=== PATIENT | female | born 1980 | race Native Hawaiian/Other Pacific Islander ===

== ENCOUNTER → 2016-12-11 | Outpatient (CLI) | payer OTHER ==
[~2016-12-11] MED LIST: CEPH500T PO
--- NOTE | 2016-12-12 08:14 | ECHOCARDIOGRAPHY REPORT ---
PROCEDURE PHYSICIAN: VIRGIL BARNES DATE OF PROCEDURE: 12/11/2016 TWO DIMENSIONAL ECHOCARDIOGRAM REPORT PRIMARY PHYSICIAN: OTHER PHYSICIAN: REFERRING PHYSICIAN: Dr. Aparicio ORDERING PHYSICIAN: Dr. Rochelle Barnes ATTENDING PHYSICIAN: FAMILY PHYSICIAN: READING PHYSICIAN: INDICATION FOR THE PROCEDURE: Chest pain. MEASUREMENTS DERIVED VALUES LV DIAMETER (LAX) NORMALS NORMALS Diastolic (3.6-5.2) Eject. Fract. (60%+/-6%) Systolic (2.3-3.9) Diastolic Vol. % Shortening (0.22-0.42) Systolic Vol. Aortic Root IVS THICKNESS Diastolic (0.6-1.1) LVPW THICKNESS Diastolic (0.6-1.1) LA DIAMETER Systolic (2.1-3.7) FINDINGS: 1. Sinus rhythm. 2. Left atrial dimensions are mildly enlarged. Left atrial diameter is 4.4 cm. 3. Aortic root dimensions are normal. 4. Left ventricular systolic function is preserved. Left ventricular ejection fraction is 60%. Mild concentric LVH is present. Diastolic intraventricular septal diameter is 1.3 cm. 5. There is no wall motion abnormality. 6. Right heart dimensions and function are normal. 7. There is no evidence of pericardial effusion. 8. Diastolic function is normal. 9. IVC diameter is 1.7 cm with no significant respiratory variation. VALVULAR STRUCTURE OF THE HEART: 1. Mitral valve: There is mild mitral regurgitation. 2. There is mild tricuspid regurgitation with RVSP of 40 mmHg. 3. There is no significant pulmonic valve pathology and aortic valve pathology. CONCLUSION: 1. LV and RV size and function is normal. 2. LV EF is 60%. 3. There is no significant valvular heart disease. 4. Mild pulmonary hypertension is noted. Job ID: [id number] Dictated Date: 12/11/2016 15:10:26 Advertising Operations Coordinator Date: 12/12/2016 08:09:49 / [email or web address]
== END ==
LOC: CARD 11:49
PROVIDERS: ATTEND Internal Medicine Interventional Cardiology
DX: R07.9 Chest pain, unspecified (principal); I10 Essential (primary) hypertension; R00.2 Palpitations; M32.9 Systemic lupus erythematosus, unspecified; Z72.0 Tobacco use
CPT/HCPCS: 93306

== ENCOUNTER → 2016-12-13 | Outpatient (CLI) | payer OTHER ==
[~2016-12-13] VITALS: Ht 162.6 cm; Wt 108.0 kg
[~2016-12-13] MED LIST changes: +REGADENOSON 0.4 MG/5 ML SYR (LEXISCAN) IV ONE
[2016-12-13] MEDS: CATHETER FLUSH 10 ML SYR IV PRN ×2 (11:52→13:36)
[2016-12-13 13:06] VITALS: BP 151/79
--- NOTE | 2016-12-14 10:41 | STRESS TEST ---
PROCEDURE PHYSICIAN: VIRGIL BARNES PHARMACOLOGICAL NUCLEAR STRESS TEST REPORT DATE OF PROCEDURE: 11/12/2016 REFERRING PHYSICIAN: Dr. Jania Aparicio PERFORMING PHYSICIAN: Dr. Kyle Barnes. INDICATION: Chest pain. PROCEDURE DETAILS: The patient was brought to the stress lab after informed consent was taken. Stress test was performed according to standard protocol. Lexiscan 0.4 mg was given. Low grade exercise was performed. Baseline EKG showed sinus rhythm with heart rate of 60 bpm and blood pressure 151/79 mmHg. Maximum heart rate was 102 bpm and blood pressure was 164/85 mmHg. We did not note any chest pain, ST-T wave abnormalities or arrhythmias. Stress test was stopped secondary to completion of protocol. Radionuclear isotope was given at peak vasodilatation. The patient was given 10.16 mCi of Myoview for rest images and 29.9 mCi of Myoview for stress images. Review of the perfusion imaging shows TID of 0.99. Ejection fraction is 71%. End-diastolic volume of 81 mL and end-systolic volume of 24. There is a moderate size, intermediate intensity apical reversible defect. Gated images show normal wall motion. CONCLUSION: 1. Pharmacological stress test is negative for ischemia. 2. There is a moderate sized apical reversible defect noted. Gated images showed normal wall motion. This could be an artifact; however, clinical correlation is recommended. Job ID: [id number] Dictated Date: 12/13/2016 15:29:34 Business Analysis Analyst Date: 12/14/2016 10:36:14 / [email or web address]
== END ==
LOC: CARD 09:28
PROVIDERS: ATTEND Internal Medicine Interventional Cardiology
DX: R07.9 Chest pain, unspecified (principal); I10 Essential (primary) hypertension; R00.2 Palpitations; M32.9 Systemic lupus erythematosus, unspecified; Z72.0 Tobacco use
CPT/HCPCS: 78452; 93017; 93270

== ENCOUNTER → 2017-01-18 | Outpatient (CLI) | payer OTHER ==
[~2017-01-18] MED LIST changes: -REGADENOSON 0.4 MG/5 ML SYR (LEXISCAN) IV ONE
--- OUTSIDE RECORDS SUMMARY | 2017-01-18 12:51 | XMS REPORT | Continuity of Care Document ---
Author Author [facility] Address Unknown Phone Unavailable Allergies Active Description Code Type Severity Reaction Onset Reported/Identified Relationship to Patient Clinical Status Yes No Known Drug Allergies [id number] Drug Allergy Unknown N/ A 11/15/2008 Medications Problems Date Dx Coded Attending Type Code Diagnosis Diagnosed By 01/02/2012 SIENA VEGRARA DO 278.01 OBESITY MORBID 01/02/2012 SIENA VERGARA DO 401.9 ESSENTIAL HYPERTENSION 01/02/2012 278.01 OBESITY MORBID 01/02/2012 401.9 ESSENTIAL HYPERTENSION 01/02/2012 SIENA VERGARA DO 278.01 OBESITY MORBID 01/02/2012 SIENA VERGARA DO 401.9 ESSENTIAL HYPERTENSION 03/11/2012 SIENA VERGARA DO V25.09 CONTRACEPTIVE COUNSELING - GENERAL 03/11/2012 V25.09 CONTRACEPTIVE COUNSELING - GENERAL 03/11/2012 SIENA VERGARA DO V25.09 CONTRACEPTIVE COUNSELING - GENERAL 05/01/2012 SIENA VERGARA DO 278.00 OBESITY 05/01/2012 SIENA VERGARA DO 379.91 eye pain 05/01/2012 SIENA VERGARA DO V77.1 visit for: screening exam diabetes mellitus 05/01/2012 SIENA VERGARA DO V77.91 visit for: screening exam lipoid disorders 05/01/2012 278.00 OBESITY 05/01/2012 379.91 eye pain 05/01/2012 V77.1 visit for: screening exam diabetes mellitus 05/01/2012 V77.91 visit for: screening exam lipoid disorders 05/01/2012 SIENA VERGARA DO 278.00 OBESITY 05/01/2012 SIENA VERGARA DO 379.91 eye pain 05/01/2012 SIENA VERGARA DO V77.1 visit for: screening exam diabetes mellitus 05/01/2012 SIENA VERGARA DO V77.91 visit for: screening exam lipoid disorders 05/27/2012 SIENA VERGARA DO V25.9 CONTRACEPTION MANAGEMENT 05/27/2012 V25.9 CONTRACEPTION MANAGEMENT 05/27/2012 SIENA VERGARA DO V25.9 CONTRACEPTION MANAGEMENT 08/18/2012 SIENA VERGARA DO V25.49 CONTRACEPTION SURVEILLANCE (REPEAT RX) 08/18/2012 V25.49 CONTRACEPTION SURVEILLANCE (REPEAT RX) 08/18/2012 SIENA VERGARA DO V25.49 CONTRACEPTION SURVEILLANCE (REPEAT RX) 08/23/2015 Ot 278.00 08/23/2015 Ot 379.91 08/23/2015 Ot 401.9 08/23/2015 Ot V77.1 08/23/2015 Ot V77.91 08/23/2015 Ot 278.00 08/23/2015 Ot 401.9 08/23/2015 MELINDA TESFAYE, GAYLE Moura Ot 278.00 08/23/2015 MELINDA TESFAYE, GAYLE Moura Ot 401.9 08/23/2015 GAYLE LAWRENCE MD Ot 719.40 08/23/2015 GAYLE LAWRENCE MD Ot 726.90 08/23/2015 MERLE LOCKWOOD MORTGAGE COLLECTOR Ot 719.40 08/23/2015 MERLE LOCKWOOD MORTGAGE COLLECTOR Ot 729.1 08/23/2015 SIDNEY HOPPER Ot F17.210 NICOTINE DEPENDENCE, CIGARETTES, UNCOMPL 08/23/2015 SIDNEY HOPPER Ot O10.019 PRE-EXISTING ESSENTIAL HTN COMP PREGNANC 08/23/2015 SIDNEY HOPPER Ot O20.0 THREATENED 08/23/2015 SIDNEY HOPPER Ot O99.330 SMOKING (TOBACCO) COMPLICATING 08/23/2015 SIDNEY HOPPER Ot Z3A.00 WEEKS OF GESTATION OF NOT SPEC 11/30/2015 SRIKANTH TESFAYE, CHEL Wood Ot M06.9 01/17/2016 Ot 278.00 01/17/2016 Ot 379.91 01/17/2016 Ot 401.9 01/17/2016 Ot V77.1 01/17/2016 Ot V77.91 01/17/2016 Ot 278.00 01/17/2016 Ot 401.9 01/17/2016 MELINDA TESFAYE, GAYLE Moura Ot 278.00 01/17/2016 MELINDA TESFAYE, GAYLE Moura Ot 401.9 01/17/2016 GAYLE LAWRENCE MD Ot 719.40 01/17/2016 GAYLE LAWRENCE MD Ot 726.90 01/17/2016 MERLE LOCKWOOD MORTGAGE COLLECTOR Ot 719.40 01/17/2016 MERLE LOCKWOOD MORTGAGE COLLECTOR Ot 729.1 01/17/2016 SRIKANTH TESFAYE, CHEL Wood Ot M06.9 01/17/2016 SRIKANTH TESFAYE, CHEL Wood Ot Z51.81 01/17/2016 SRIKANTH TESFAYE, CHEL Wood Ot Z79.899 01/17/2016 SRIKANTH TESFAYE, CHEL Wood Ot M05.79 01/17/2016 Ot 278.00 01/17/2016 Ot 379.91 01/17/2016 Ot 401.9 01/17/2016 Ot V77.1 01/17/2016 Ot V77.91 01/17/2016 Ot 278.00 01/17/2016 Ot 401.9 01/17/2016 MELINDA TESFAYE, GAYLE A Ot 278.00 01/17/2016 MELINDA TESFAYE, GAYLE A Ot 401.9 01/17/2016 MELINDA TESFAYE, GAYLE A Ot 719.40 01/17/2016 MELINDA TESFAYE, GAYLE A Ot 726.90 01/17/2016 MERLE LOCKWOOD MORTGAGE COLLECTOR Ot 719.40 01/17/2016 MERLE LOCKWOOD MORTGAGE COLLECTOR Ot 729.1 01/17/2016 SRIKANTH TESFAYE, CHEL Wood Ot M06.9 01/17/2016 SRIKANTH TESFAYE, CHEL Wood Ot Z51.81 01/17/2016 SRIKANTH TESFAYE, CHEL Wood Ot Z79.899 01/17/2016 SRIKANTH TESFAYE, CHEL Wood Ot M05.79 11/07/2016 Ot 278.00 OBESITY, NOS 11/07/2016 Ot 379.91 PAIN IN OR AROUND EYE 11/07/2016 Ot 401.9 HYPERTENSION NOS 11/07/2016 Ot V77.1 SCREEN-DIABETES MELLITUS 11/07/2016 Ot V77.91 SCREEN LIPOID DISORDERS 11/07/2016 Ot 278.00 OBESITY, NOS 11/07/2016 Ot 401.9 HYPERTENSION NOS 11/07/2016 MELINDA TESFAYE, GAYLE A Ot 278.00 OBESITY, NOS 11/07/2016 MELINDA TESFAYE, GAYLE A Ot 401.9 HYPERTENSION NOS 11/07/2016 MELINDA TESFAYE, GAYLE Moura Ot 719.40 JOINT PAIN-UNSPEC 11/07/2016 MELINDA TESFAYE, GAYLE Moura Ot 726.90 ENTHESOPATHY, SITE NOS 11/07/2016 MERLE LOCKWOOD MORTGAGE COLLECTOR Ot 719.40 JOINT PAIN-UNSPEC 11/07/2016 MERLE LOCKWOOD MORTGAGE COLLECTOR Ot 729.1 MYALGIA AND MYOSITIS NOS 11/07/2016 CHEL DUKE MD Ot M06.9 RHEUMATOID ARTHRITIS, UNSPECIFIED 11/07/2016 CHEL DUKE MD Ot Z51.81 ENCOUNTER FOR THERAPEUTIC DRUG LEVEL MON 11/07/2016 CHEL DUKE MD Ot Z79.899 OTHER MILL HAND (CURRENT) DRUG THERAPY 11/07/2016 CHEL DUKE MD Ot M05.79 RHEU ARTHRITIS W RHEU FACTOR MULT SITE W 12/11/2016 Ot 278.00 OBESITY, NOS 12/11/2016 Ot 379.91 PAIN IN OR AROUND EYE 12/11/2016 Ot 401.9 HYPERTENSION NOS 12/11/2016 Ot V77.1 SCREEN-DIABETES MELLITUS 12/11/2016 Ot V77.91 SCREEN LIPOID DISORDERS 12/11/2016 Ot 278.00 OBESITY, NOS 12/11/2016 Ot 401.9 HYPERTENSION NOS 12/11/2016 GAYLE LAWRENCE MD Ot 278.00 OBESITY, NOS 12/11/2016 GAYLE LAWRENCE MD Ot 401.9 HYPERTENSION NOS 12/11/2016 GAYLE LAWRENCE MD Ot 719.40 JOINT PAIN-UNSPEC 12/11/2016 GAYLE LAWRENCE MD Ot 726.90 ENTHESOPATHY, SITE NOS 12/11/2016 MERLE LOCKWOOD MORTGAGE COLLECTOR Ot 719.40 JOINT PAIN-UNSPEC 12/11/2016 MERLE LOCKWOOD MORTGAGE COLLECTOR Ot 729.1 MYALGIA AND MYOSITIS NOS 12/11/2016 CHEL DUKE MD Ot M06.9 RHEUMATOID ARTHRITIS, UNSPECIFIED 12/11/2016 CHEL DUKE MD Ot Z51.81 ENCOUNTER FOR THERAPEUTIC DRUG LEVEL MON 12/11/2016 CHEL DUKE MD Ot Z79.899 OTHER [facility] (CURRENT) DRUG THERAPY 12/11/2016 CHEL DUKE MD Ot M05.79 RHEU ARTHRITIS W RHEU FACTOR MULT SITE W 12/11/2016 JASWANT MCLEAN ADMINISTRATIVE TECH Ot R06.02 SHORTNESS OF BREATH 12/11/2016 JASWANT MCLEAN ADMINISTRATIVE TECH Ot R07.9 CHEST PAIN, UNSPECIFIED 12/12/2016 To BURKS MD Ot I10 ESSENTIAL (PRIMARY) HYPERTENSION 12/12/2016 VITALIY TESFAYE, To CHILDS Ot M32.9 SYSTEMIC LUPUS ERYTHEMATOSUS, UNSPECIFIE 12/12/2016 To BURKS MD Ot R00.2 PALPITATIONS 12/12/2016 To BURKS MD Ot R07.9 CHEST PAIN, UNSPECIFIED 12/12/2016 To BURKS MD Ot Z72.0 TOBACCO USE 12/13/2016 To BURKS MD Ot I10 ESSENTIAL (PRIMARY) HYPERTENSION 12/13/2016 VITALIY TESFAYE, To CHILDS Ot M32.9 SYSTEMIC LUPUS ERYTHEMATOSUS, UNSPECIFIE 12/13/2016 VITALIY TESFAYE, To CHILDS Ot R00.2 PALPITATIONS 12/13/2016 To BURKS MD Ot R07.9 CHEST PAIN, UNSPECIFIED 12/13/2016 To BURKS MD Ot Z72.0 TOBACCO USE 12/14/2016 To BURKS MD Ot I10 ESSENTIAL (PRIMARY) HYPERTENSION 12/14/2016 To BURKS MD Ot M32.9 SYSTEMIC LUPUS ERYTHEMATOSUS, UNSPECIFIE 12/14/2016 To BURKS MD Ot R00.2 PALPITATIONS 12/14/2016 To BURKS MD Ot R07.9 CHEST PAIN, UNSPECIFIED 12/14/2016 To BURKS MD Ot Z72.0 TOBACCO USE 12/14/2016 To BURKS MD Ot I10 ESSENTIAL (PRIMARY) HYPERTENSION 12/14/2016 To BURKS MD Ot M32.9 SYSTEMIC LUPUS ERYTHEMATOSUS, UNSPECIFIE 12/14/2016 To BURKS MD Ot R00.2 PALPITATIONS 12/14/2016 To BURKS MD Ot R07.9 CHEST PAIN, UNSPECIFIED 12/14/2016 To BURKS MD Ot Z72.0 TOBACCO USE 12/17/2016 To BURKS MD Ot I10 ESSENTIAL (PRIMARY) HYPERTENSION 12/17/2016 VITALIY TESFAYE, To CHILDS Ot M32.9 SYSTEMIC LUPUS ERYTHEMATOSUS, UNSPECIFIE 12/17/2016 VITALIY TESFAYE, To CHILDS Ot R00.2 PALPITATIONS 12/17/2016 VITALIY TESFAYE, To CHILDS Ot R07.9 CHEST PAIN, UNSPECIFIED 12/17/2016 VITALIY TESFAYE, To CHILDS Ot Z72.0 TOBACCO USE 01/18/2017 Ot 278.00 OBESITY, NOS 01/18/2017 Ot 379.91 PAIN IN OR AROUND EYE 01/18/2017 Ot 401.9 HYPERTENSION NOS 01/18/2017 Ot V77.1 SCREEN-DIABETES MELLITUS 01/18/2017 Ot V77.91 SCREEN LIPOID DISORDERS 01/18/2017 Ot 278.00 OBESITY, NOS 01/18/2017 Ot 401.9 HYPERTENSION NOS 01/18/2017 MELINDA TESFAYE, GAYLE Moura Ot 278.00 OBESITY, NOS 01/18/2017 MELINDA TESFAYE, GAYLE Moura Ot 401.9 HYPERTENSION NOS 01/18/2017 MELINDA TESFAYE, GAYLE Moura Ot 719.40 JOINT PAIN-UNSPEC 01/18/2017 MELINDA TESFAYE, GAYLE Moura Ot 726.90 ENTHESOPATHY, SITE NOS 01/18/2017 MERLE LOCKWOOD MORTGAGE COLLECTOR Ot 719.40 JOINT PAIN-UNSPEC 01/18/2017 MERLE LOCKWOOD MORTGAGE COLLECTOR Ot 729.1 MYALGIA AND MYOSITIS NOS 01/18/2017 CHEL DUKE MD Ot M06.9 RHEUMATOID ARTHRITIS, UNSPECIFIED 01/18/2017 CHEL DUKE MD Ot Z51.81 ENCOUNTER FOR THERAPEUTIC DRUG LEVEL MON 01/18/2017 CHEL DUKE MD Ot Z79.899 OTHER [facility] (CURRENT) DRUG THERAPY 01/18/2017 CHEL DUKE MD Ot M05.79 RHEU ARTHRITIS W RHEU FACTOR MULT SITE W 01/18/2017 JASWANT MCLEAN APRN Ot R06.02 SHORTNESS OF BREATH 01/18/2017 JASWANT MCLEAN APRN Ot R07.9 CHEST PAIN, UNSPECIFIED 01/18/2017 VITALIY TESFAYE, To CHILDS Ot I10 ESSENTIAL (PRIMARY) HYPERTENSION 01/18/2017 VITALIY TESFAYE, To CHILDS Ot M32.9 SYSTEMIC LUPUS ERYTHEMATOSUS, UNSPECIFIE 01/18/2017 VITALIY TESFAYE, To CHILDS Ot R00.2 PALPITATIONS 01/18/2017 VITALIY TESFAYE, To CHILDS Ot R07.9 CHEST PAIN, UNSPECIFIED 01/18/2017 VITALIY TESFAYE, To CHILDS Ot Z72.0 TOBACCO USE 01/18/2017 VITALIY TESFAYE, To CHILDS Ot I10 ESSENTIAL (PRIMARY) HYPERTENSION 01/18/2017 VITALIY TESFAYE, To CHILDS Ot M32.9 SYSTEMIC LUPUS ERYTHEMATOSUS, UNSPECIFIE 01/18/2017 VITALIY TESFAYE, To CHILDS Ot R00.2 PALPITATIONS 01/18/2017 VITALIY TESFAYE, To CHILDS Ot R07.9 CHEST PAIN, UNSPECIFIED 01/18/2017 To BURKS MD Ot Z72.0 TOBACCO USE Procedures Code Description [place] [address] THERAPUTIC INJ SQ/IM 11/17/2012 J1055 DEPO-PROVERA INJ 150 MG 11/17/2012 [id number] URINE TEST (IN-HOUSE) 11/17/2012 40328 URINE TEST (IN-HOUSE) 02/21/2013 J1050 DEPO PROVERA 42981 THERAPUTIC INJ SQ/IM 02/21/2013 44332 THERAPUTIC INJ SQ/IM 07/04/2013 J1050 DEPO PROVERA 82746 URINE TEST (IN-HOUSE) 07/04/2013 Results Encounters ACCT No. Visit Date/Time Discharge Status Pt. Type Provider Facility Loc./Unit Complaint [id number] 07/04/2013 11:49:00 07/04/2013 23: 59:59 CLS Outpatient SIENA VERGARA DO [id number] 11/17/2012 16:25:00 11/17/2012 23: 59:59 CLS Outpatient SIENA VERGARA DO [id number] 02/21/2013 10:36:00 Document Registration
[2017-01-18 13:21] LABS: ALANINE AMINOTRANSFERASE 31 U/L (0-55); ASPARTATE AMINO TRANSFERASE 32 U/L (5-34)
== END ==
LOC: LAB 12:47
PROVIDERS: ATTEND Internal Medicine Rheumatology
DX: M35.00 Sjogren syndrome, unspecified (principal); M79.7 Fibromyalgia; M05.79 Rheumatoid arthritis with rheumatoid factor of multiple sites without organ or systems involvement; D89.89 Other specified disorders involving the immune mechanism, not elsewhere classified; Z79.899 Other long term (current) drug therapy
CPT/HCPCS: 36415; 84450; 84460

== ENCOUNTER → 2017-03-22 | Outpatient (CLI) | payer OTHER ==
[2017-03-22 14:31] LABS: BASOPHILS # (AUTO) 0.1 10^3/uL (0.0-0.1); BASOPHILS % (AUTO) 1 % (0-10); EOSINOPHILS # (AUTO) 0.1 10^3/uL (0.0-0.3); EOSINOPHILS % (AUTO) 2 % (0-10); LYMPHOCYTES # (AUTO) 2.1 X 10^3 (1.0-4.0); LYMPHOCYTES % (AUTO) 37 % (12-44); MEAN CORPUSCULAR HEMOGLOBIN 31 PG (25-34); MEAN CORPUSCULAR HGB CONC 34 G/DL (32-36); MEAN CORPUSCULAR VOLUME 91 FL (80-99); MEAN PLATELET VOLUME 9.1 FL (7.4-10.4); MONOCYTES # (AUTO) 0.5 X 10^3 (0.0-1.0); MONOCYTES % (AUTO) 8 % (0-12); NEUTROPHILS # (AUTO) 2.9 X 10^3 (1.8-7.8); NEUTROPHILS % (AUTO) 52 % (42-75); PLATELET COUNT 255 10^3/uL (130-400); RED BLOOD COUNT 3.91 10^6/uL (4.35-5.85); RED CELL DISTRIBUTION WIDTH 15.3 % (10.0-14.5); WHITE BLOOD COUNT 5.7 10^3/uL (4.3-11.0)
[2017-03-22 14:40] LABS: CREATININE SERUM 0.78 MG/DL (0.60-1.30); hs C REACTIVE PROTEIN 0.13 MG/DL (0.00-0.50)
[2017-03-22 14:57] LABS: ERYTHROCYTE SEDIMENTATION RATE 21 MM/HR (0-20)
== END ==
LOC: LAB 14:08
PROVIDERS: ATTEND Internal Medicine Rheumatology
DX: M05.79 Rheumatoid arthritis with rheumatoid factor of multiple sites without organ or systems involvement (principal)
CPT/HCPCS: 36415; 82565; 84460; 85025; 85652; 86141

== ENCOUNTER → 2017-06-13 | Outpatient (CLI) | payer OTHER ==
[2017-06-13 16:12] LABS: BASOPHILS % (AUTO) 1 % (0-10); EOSINOPHILS # (AUTO) 0.2 10^3/uL (0.0-0.3); EOSINOPHILS % (AUTO) 2 % (0-10); LYMPHOCYTES # (AUTO) 1.5 X 10^3 (1.0-4.0); LYMPHOCYTES % (AUTO) 24 % (12-44); MEAN CORPUSCULAR HEMOGLOBIN 30 PG (25-34); MEAN CORPUSCULAR HGB CONC 33 G/DL (32-36); MEAN CORPUSCULAR VOLUME 90 FL (80-99); MEAN PLATELET VOLUME 9.4 FL (7.4-10.4); MONOCYTES # (AUTO) 0.5 X 10^3 (0.0-1.0); MONOCYTES % (AUTO) 7 % (0-12); NEUTROPHILS % (AUTO) 65 % (42-75); PLATELET COUNT 287 10^3/uL (130-400); RED BLOOD COUNT 4.19 10^6/uL (4.35-5.85); RED CELL DISTRIBUTION WIDTH 16.1 % (10.0-14.5); WHITE BLOOD COUNT 6.2 10^3/uL (4.3-11.0)
[2017-06-13 16:28] LABS: CREATININE SERUM 0.79 MG/DL (0.60-1.30); hs C REACTIVE PROTEIN 0.5 MG/DL (0.00-0.50)
[2017-06-13 16:29] LABS: ERYTHROCYTE SEDIMENTATION RATE 32 MM/HR (0-20)
[2017-06-14 06:37] LABS: C3 COMPLEMENT SERUM 103 mg/dL (73-183)
[2017-06-14 06:38] LABS: C4 COMPLEMENT SERUM 15 mg/dL (15-59)
[2017-06-19 07:52] LABS: ANTI DNA DOUBLE STRANDED ABY 217 IU/ML (0-300); DNA CONFIRM Positive
[2017-06-19 07:53] LABS: SJOGRENS SSA ANTIBODIES 50 H UNITS (0-19)
[2017-06-19 07:54] LABS: SCLERODERMA ANTIBODY <20 UNITS (0-19); SJOGRENS SSB ANTIBODIES 37 H UNITS (0-19)
[2017-06-19 07:55] LABS: ANTI SMITH ANTIBODY <20 UNITS (0-19)
[2017-06-19 08:20] LABS: SMITH AB INTP Negative (Negative)
[2017-06-19 08:21] LABS: SSA INTP Positive (NEGATIVE); SSB INTP Positive (NEGATIVE)
[2017-06-19 08:22] LABS: JO 1 ANTIBODY <20 EU/ML (0-19); JO-1 INTP Negative (Negative)
[2017-06-19 08:24] LABS: ANTI RIBONUCLEAR PROTEIN <20 UNITS (0-19)
[2017-06-19 08:25] LABS: ANTI RNP INTERP Negative (Negative)
[2017-06-19 08:27] LABS: ENA SCREEN Positive (Negative); NONHIS INT See Footnote
[2017-06-19 08:28] LABS: ENA CONFIR Complete; SCL 70 INTERP Negative (Negative)
== END ==
LOC: LAB 15:31
PROVIDERS: ATTEND Internal Medicine Rheumatology
DX: M05.79 Rheumatoid arthritis with rheumatoid factor of multiple sites without organ or systems involvement (principal)
CPT/HCPCS: 36415; 82565; 84460; 85025; 85652; 86038; 86039; 86141; 86160; 86225; 86235

== ENCOUNTER → 2017-07-04 | Outpatient (CLI) | payer OTHER ==
[2017-07-06 06:18] LABS: LYME AB G M 0.08 Index (0.00-0.89)
[2017-07-06 13:58] LABS: LYME AB INTERP Negative (Negative); TULAREMIA ANTIBODY 1:40
== END ==
LOC: LAB 17:08
PROVIDERS: ATTEND Family Medicine
DX: R53.81 Other malaise (principal); M25.50 Pain in unspecified joint; R53.83 Other fatigue
CPT/HCPCS: 36415; 86618; 86666; 86668; 86757

== ENCOUNTER → 2017-11-29 | Outpatient (CLI) | payer OTHER ==
[2017-11-29 10:56] LABS: BASOPHILS % (AUTO) 0 % (0-10); EOSINOPHILS # (AUTO) 0.1 10^3/uL (0.0-0.3); EOSINOPHILS % (AUTO) 2 % (0-10); HEMATOCRIT 37 % (35-52); HEMOGLOBIN 12.6 G/DL (11.5-16.0); LYMPHOCYTES # (AUTO) 1.4 X 10^3 (1.0-4.0); LYMPHOCYTES % (AUTO) 23 % (12-44); MEAN CORPUSCULAR HEMOGLOBIN 29 PG (25-34); MEAN CORPUSCULAR HGB CONC 34 G/DL (32-36); MEAN CORPUSCULAR VOLUME 85 FL (80-99); MEAN PLATELET VOLUME 9.1 FL (7.4-10.4); MONOCYTES # (AUTO) 0.5 X 10^3 (0.0-1.0); MONOCYTES % (AUTO) 8 % (0-12); NEUTROPHILS % (AUTO) 66 % (42-75); PLATELET COUNT 244 10^3/uL (130-400); RED BLOOD COUNT 4.31 10^6/uL (4.35-5.85)
[2017-11-29 11:16] LABS: CREATININE SERUM 0.81 MG/DL (0.60-1.30)
[2017-11-29 11:27] LABS: ERYTHROCYTE SEDIMENTATION RATE 33 MM/HR (0-20)
== END ==
LOC: LAB 10:26
PROVIDERS: ATTEND Internal Medicine Rheumatology
DX: M05.79 Rheumatoid arthritis with rheumatoid factor of multiple sites without organ or systems involvement (principal)
CPT/HCPCS: 36415; 82565; 84460; 85025; 85652; 86038; 86039; 86141; 86160

== ENCOUNTER 2017-12-09 10:54 | Day surgery (SDC) | payer OTHER ==
[~2017-12-09] VITALS: Ht 162.6 cm; Wt 108.0 kg
[2017-12-09] VITALS (19 sets, daily range): BP systolic 141–232; BP diastolic 85–126
--- OUTSIDE RECORDS SUMMARY | 2017-12-09 10:58 | XMS REPORT | Continuity of Care Document ---
Author Author [facility] Address Unknown Phone Unavailable Allergies Active Description Code Type Severity Reaction Onset Reported/Identified Relationship to Patient Clinical Status Yes No Known Drug Allergies [id number] Drug Allergy Unknown N/A 11/15/2008 Medications There is no data. Problems Date Dx Coded Attending Type Code Diagnosis Diagnosed By 01/02/2012 SIENA VERGARA DO 278.01 OBESITY MORBID [...] LAWRENCE MD Ot 726.90 08/23/2015 MERLE LOCKWOOD BAGGAGEMASTER Ot 719.40 08/23/2015 MERLE LOCKWOOD BAGGAGEMASTER Ot 729.1 08/23/2015 SIDNEY HOPPER Ot F17.210 NICOTINE DEPENDENCE, CIGARETTES, UNCOMPL 08/23/2015 SIDNEY HOPPER Ot O10.019 PRE-EXISTING ESSENTIAL HTN COMP PREGNANC 08/23/2015 SIDNEY HOPPER Ot O20.0 THREATENED 08/23/2015 SIDNEY HOPPER Ot O99.330 SMOKING (TOBACCO) COMPLICATING 08/23/2015 SIDNEY HOPPER Ot Z3A.00 WEEKS OF GESTATION OF NOT SPEC 11/30/2015 SRIKNATH TESFAYE, CHEL Wood Ot M06.9 01/17/2016 Ot 278.00 01/17/2016 Ot 379.91 01/17/2016 Ot 401.9 01/17/2016 Ot V77.1 01/17/2016 Ot V77.91 01/17/2016 Ot 278.00 01/17/2016 Ot 401.9 01/17/2016 MELINDA TESFAYE, GAYLE Moura Ot 278.00 01/17/2016 MELINDA TESFAYE, GAYLE Moura Ot 401.9 01/17/2016 MELINDA TESFAYE, GAYLE Moura Ot 719.40 01/17/2016 MELINDA TESFAYE, GAYLE A Ot 726.90 01/17/2016 MERLE LOCKWOOD BAGGAGEMASTER Ot 719.40 01/17/2016 MERLE LOCKWOOD BAGGAGEMASTER Ot 729.1 01/17/2016 SRIKANTH TESFAYE, CHEL Wood Ot M06.9 01/17/2016 SRIKANTH TESFAYE, CHEL Wood Ot Z51.81 01/17/2016 SRIKANTH TESFAYE, CHEL oWod Ot Z79.899 01/17/2016 SRIKANTH TESFAYE, CHEL Wood Ot M05.79 01/17/2016 Ot 278.00 01/17/2016 Ot 379.91 01/17/2016 Ot 401.9 01/17/2016 Ot V77.1 01/17/2016 Ot V77.91 01/17/2016 Ot 278.00 01/17/2016 Ot 401.9 01/17/2016 MELINDA TESFAYE, GAYLE A Ot 278.00 01/17/2016 MELINDA TESFAYE, GAYLE A Ot 401.9 01/17/2016 MELINDA TESFAYE, GAYLE A Ot 719.40 01/17/2016 MELINDA TESFAYE, GAYLE A Ot 726.90 01/17/2016 MERLE LOCKWOOD BAGGAGEMASTER Ot 719.40 01/17/2016 MERLE LOCKWOOD BAGGAGEMASTER Ot 729.1 01/17/2016 SRIKANTH TESFAYE, CHEL Wood Ot M06.9 01/17/2016 SRIKANTH TESFAYE, CHEL Wood Ot Z51.81 01/17/2016 SRIKANTH TESFAYE, CHEL Wood Ot Z79.899 01/17/2016 SRIKANTH TESFAYE, CHEL Wood Ot M05.79 11/07/2016 Ot 278.00 OBESITY, NOS 11/07/2016 Ot 379.91 PAIN IN OR AROUND EYE 11/07/2016 Ot 401.9 HYPERTENSION NOS 11/07/2016 Ot V77.1 SCREEN- DIABETES MELLITUS 11/07/2016 Ot V77.91 SCREEN LIPOID DISORDERS 11/07/2016 Ot 278.00 OBESITY, NOS 11/07/2016 Ot 401.9 HYPERTENSION NOS 11/07/2016 MELINDA TESFAYE, GAYLE Moura Ot 278.00 OBESITY, NOS 11/07/2016 MELINDA TESFAYE, GAYLE Moura Ot 401.9 HYPERTENSION NOS 11/07/2016 MELINDA TESFAYE, GAYLE Moura Ot 719.40 JOINT PAIN-UNSPEC 11/07/2016 MELINDA TESFAYE, GAYLE Moura Ot 726.90 ENTHESOPATHY, SITE NOS 11/07/2016 MERLE LOCKWOOD BAGGAGEMASTER Ot 719.40 JOINT PAIN-UNSPEC 11/07/2016 MERLE LOCKWOOD BAGGAGEMASTER Ot 729.1 MYALGIA AND MYOSITIS NOS 11/07/2016 CHEL DUKE MD Ot M06.9 RHEUMATOID ARTHRITIS, UNSPECIFIED 11/07/2016 CHEL DUKE MD Ot Z51.81 ENCOUNTER FOR THERAPEUTIC DRUG LEVEL MON 11/07/2016 CHEL DUKE MD Ot Z79.899 OTHER ANCHOR OPERATOR (CURRENT) DRUG THERAPY 11/07/2016 CHEL DUKE MD Ot M05.79 RHEU ARTHRITIS W RHEU FACTOR MULT SITE W 12/11/2016 Ot 278.00 OBESITY, NOS 12/11/2016 Ot 379.91 PAIN IN OR AROUND EYE 12/11/2016 Ot 401.9 HYPERTENSION NOS 12/11/2016 Ot V77.1 SCREEN- DIABETES MELLITUS 12/11/2016 Ot V77.91 SCREEN LIPOID DISORDERS 12/11/2016 Ot 278.00 OBESITY, NOS 12/11/2016 Ot 401.9 HYPERTENSION NOS 12/11/2016 GAYLE LAWRENCE MD Ot 278.00 OBESITY, NOS 12/11/2016 GAYLE LAWRENCE MD Ot 401.9 HYPERTENSION NOS 12/11/2016 GAYLE LAWRENCE MD Ot 719.40 JOINT PAIN-UNSPEC 12/11/2016 GAYLE LAWRENCE MD Ot 726.90 ENTHESOPATHY, SITE NOS 12/11/2016 MERLE LOCKWOOD BAGGAGEMASTER Ot 719.40 JOINT PAIN-UNSPEC 12/11/2016 MERLE LOCKWOOD BAGGAGEMASTER Ot 729.1 MYALGIA AND MYOSITIS NOS 12/11/2016 CHEL DUKE MD Ot M06.9 RHEUMATOID ARTHRITIS, UNSPECIFIED 12/11/2016 CHEL DUKE MD Ot Z51.81 ENCOUNTER FOR THERAPEUTIC DRUG LEVEL MON 12/11/2016 CHEL DUKE MD Ot Z79.899 OTHER CARE HOME (CURRENT) DRUG THERAPY 12/11/2016 CHEL DUKE MD Ot M05.79 RHEU ARTHRITIS W RHEU FACTOR MULT SITE W 12/11/2016 JASWANT MCLEAN APRN Ot R06.02 SHORTNESS OF BREATH 12/11/2016 JASWANT MCLEAN APRN Ot R07.9 CHEST PAIN, UNSPECIFIED 12/12/2016 To BURKS MD Ot I10 ESSENTIAL (PRIMARY) HYPERTENSION 12/12/2016 VITALIY TESFAYE, To CHILDS Ot M32.9 SYSTEMIC LUPUS ERYTHEMATOSUS, UNSPECIFIE 12/12/2016 VITALIY TESFAYE, To CHILDS Ot R00.2 PALPITATIONS 12/12/2016 To BURKS MD Ot R07.9 CHEST PAIN, UNSPECIFIED 12/12/2016 VITALIY TESFAYE, To CHILDS Ot Z72.0 TOBACCO USE 12/13/2016 VITALIY TESFAYE, To CHILDS Ot I10 ESSENTIAL (PRIMARY) HYPERTENSION 12/13/2016 VITALIY TESFAYE, To CHILDS Ot M32.9 SYSTEMIC LUPUS ERYTHEMATOSUS, UNSPECIFIE 12/13/2016 To BURKS MD Ot R00.2 PALPITATIONS 12/13/2016 To BURKS MD Ot R07.9 CHEST PAIN, UNSPECIFIED 12/13/2016 To BURKS MD Ot Z72.0 TOBACCO USE 12/14/2016 VITALIY TESFAYE, To CHILDS Ot I10 ESSENTIAL (PRIMARY) HYPERTENSION 12/14/2016 To [...] Ot Z72.0 TOBACCO USE 12/17/2016 To BURKS MDN Ot I10 ESSENTIAL (PRIMARY) HYPERTENSION 12/17/2016 VITALIY TESFAYE, To CHILDS Ot M32.9 SYSTEMIC LUPUS ERYTHEMATOSUS, UNSPECIFIE 12/17/2016 To BURKS MD Ot R00.2 PALPITATIONS 12/17/2016 VITALIY TESFAYE, To CHILDS Ot R07.9 CHEST PAIN, UNSPECIFIED 12/17/2016 To BURKS MD Ot Z72.0 TOBACCO USE 01/18/2017 Ot 278.00 OBESITY, NOS 01/18/2017 Ot 379.91 PAIN IN OR AROUND EYE 01/18/2017 Ot 401.9 HYPERTENSION NOS 01/18/2017 Ot V77.1 SCREEN- DIABETES MELLITUS 01/18/2017 Ot V77.91 SCREEN LIPOID DISORDERS 01/18/2017 Ot 278.00 OBESITY, NOS 01/18/2017 Ot 401.9 HYPERTENSION NOS 01/18/2017 MELINDA TESFAYE, GAYLE Moura Ot 278.00 OBESITY, NOS 01/18/2017 MELINDA TESFAYE, GAYLE Moura Ot 401.9 HYPERTENSION NOS 01/18/2017 MELINDA TESFAYE, GAYLE Moura Ot 719.40 JOINT PAIN-UNSPEC 01/18/2017 MELINDA TESFAYE, GAYLE Moura Ot 726.90 ENTHESOPATHY, SITE NOS 01/18/2017 MERLE LOCKWOOD BAGGAGEMASTER Ot 719.40 JOINT PAIN-UNSPEC 01/18/2017 MERLE LOCKWOOD BAGGAGEMASTER Ot 729.1 MYALGIA AND MYOSITIS NOS 01/18/2017 CHEL DUKE MD Ot M06.9 RHEUMATOID ARTHRITIS, UNSPECIFIED 01/18/2017 CHEL DUKE MD Ot Z51.81 ENCOUNTER FOR THERAPEUTIC DRUG LEVEL MON 01/18/2017 CHEL DUKE MD Ot Z79.899 OTHER ANCHOR OPERATOR (CURRENT) DRUG THERAPY 01/18/2017 CHEL DUKE MD Ot M05.79 RHEU ARTHRITIS W RHEU FACTOR MULT SITE W 01/18/2017 JASWANT MCLEAN APRN Ot R06.02 SHORTNESS OF BREATH 01/18/2017 JASWANT MCLEAN APRN Ot R07.9 CHEST PAIN, UNSPECIFIED 01/18/2017 To BURKS MD Ot I10 ESSENTIAL (PRIMARY) HYPERTENSION 01/18/2017 To BURKS MD Ot M32.9 SYSTEMIC LUPUS ERYTHEMATOSUS, UNSPECIFIE 01/18/2017 VITALIY TESFAYE, M NAZ Ot R00.2 PALPITATIONS 01/18/2017 VITALIY TESFAYE, To CHILDS Ot R07.9 CHEST PAIN, UNSPECIFIED 01/18/2017 VITALIY TESFAYE, To CHILDS Ot Z72.0 TOBACCO USE 01/18/2017 VITALIY TESFAYE, To CHILDS Ot I10 ESSENTIAL (PRIMARY) HYPERTENSION 01/18/2017 VITALIY TESFAYE, M NAZ Ot M32.9 SYSTEMIC LUPUS ERYTHEMATOSUS, UNSPECIFIE 01/18/2017 VITALIY TESFAYE, M NAZ Ot R00.2 PALPITATIONS 01/18/2017 VITALIY TESFAYE, To CHILDS Ot R07.9 CHEST PAIN, UNSPECIFIED 01/18/2017 VITALIY TESFAYE, To CHILDS Ot Z72.0 TOBACCO USE 07/05/2017 MELINDA TESFAYE, GAYLE Moura Ot M25.50 PAIN IN UNSPECIFIED JOINT 07/05/2017 GAYLE LAWRENCE MD Ot R53.81 OTHER MALAISE 07/05/2017 GAYLE LAWRENCE MD Ot R53.83 OTHER FATIGUE 11/29/2017 Ot 278.00 OBESITY, NOS 11/29/2017 Ot 401.9 HYPERTENSION NOS 11/29/2017 GAYLE LAWRENCE MD Ot 278.00 OBESITY, NOS 11/29/2017 GAYLE LAWRENCE MD Ot 401.9 HYPERTENSION NOS 11/29/2017 GAYLE LAWRENCE MD Ot 719.40 JOINT PAIN-UNSPEC 11/29/2017 GAYLE LAWRENCE MD Ot 726.90 ENTHESOPATHY, SITE NOS 11/29/2017 MERLE LOCKWOOD BAGGAGEMASTER Ot 719.40 JOINT PAIN-UNSPEC 11/29/2017 MERLE LOCKWOOD BAGGAGEMASTER Ot 729.1 MYALGIA AND MYOSITIS NOS 11/29/2017 CHEL DUKE MD Ot M06.9 RHEUMATOID ARTHRITIS, UNSPECIFIED 11/29/2017 CHEL DUKE MD Ot Z51.81 ENCOUNTER FOR THERAPEUTIC DRUG LEVEL MON 11/29/2017 CHEL DUKE MD Ot Z79.899 OTHER ANCHOR OPERATOR (CURRENT) DRUG THERAPY 11/29/2017 CHEL DUKE MD Ot M05.79 RHEU ARTHRITIS W RHEU FACTOR MULT SITE W 11/29/2017 JASWANT MCLEAN M INSTRUMENT PANEL ASSEMBLER Ot R06.02 SHORTNESS OF BREATH 11/29/2017 JASWANT MCLEAN INSTRUMENT PANEL ASSEMBLER Ot R07.9 CHEST PAIN, UNSPECIFIED 11/29/2017 VITALIY TESFAYE, To CHILDS Ot I10 ESSENTIAL (PRIMARY) HYPERTENSION 11/29/2017 VITALIY TESFAYE, M NAZ Ot M32.9 SYSTEMIC LUPUS ERYTHEMATOSUS, UNSPECIFIE 11/29/2017 VITALIY TESFAYE, M NAZ Ot R00.2 PALPITATIONS 11/29/2017 VITALIY TESFAYE, M NAZ Ot R07.9 CHEST PAIN, UNSPECIFIED 11/29/2017 VITALIY TESFAYE, To CHILDS Ot Z72.0 TOBACCO USE 11/29/2017 VITALIY TESFAYE, To CHILDS Ot I10 ESSENTIAL (PRIMARY) HYPERTENSION 11/29/2017 VITALIY TESFAYE, To CHILDS Ot M32.9 SYSTEMIC LUPUS ERYTHEMATOSUS, UNSPECIFIE 11/29/2017 VITALIY TESFAYE, To CHILDS Ot R00.2 PALPITATIONS 11/29/2017 VITALIY TESFAYE, To CHILDS Ot R07.9 CHEST PAIN, UNSPECIFIED 11/29/2017 VITALIY TESFAYE, To CHILDS Ot Z72.0 TOBACCO USE 11/29/2017 CHEL DUKE MD Ot 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 11/29/2017 CHEL DUKE MD Ot M05.79 RHEU ARTHRITIS W RHEU FACTOR MULT SITE W 11/29/2017 CHEL DUKE MD Ot M35.00 SICCA SYNDROME, UNSPECIFIED 11/29/2017 CHEL DUKE MD Ot M79.7 FIBROMYALGIA 11/29/2017 CHEL DUKE MD Ot Z79.899 OTHER ANCHOR OPERATOR (CURRENT) DRUG THERAPY 11/29/2017 CHEL DUKE MD Ot M05.79 RHEU ARTHRITIS W RHEU FACTOR MULT SITE W 11/29/2017 CHEL DUKE MD Ot M05.79 RHEU ARTHRITIS W RHEU FACTOR MULT SITE W 11/29/2017 GAYLE LAWRENCE MD Ot M25.50 PAIN IN UNSPECIFIED JOINT 11/29/2017 MELINDA MD, GAYLE A Ot R53.81 OTHER MALAISE 11/29/2017 MELINDA TESFAYE, GAYLE Moura Ot R53.83 OTHER FATIGUE 12/02/2017 CHEL DUKE MD Ot M05.79 RHEU ARTHRITIS W RHEU FACTOR MULT SITE W 12/06/2017 Ot 278.00 OBESITY, NOS 12/06/2017 Ot 401.9 HYPERTENSION NOS 12/06/2017 MELINDA TESFAYE, GAYLE Moura Ot 278.00 OBESITY, NOS 12/06/2017 MELINDA TESFAYE, GAYLE Moura Ot 401.9 HYPERTENSION NOS 12/06/2017 MELINDA TESFAYE, GAYLE A Ot 719.40 JOINT PAIN-UNSPEC 12/06/2017 MELINDA TESFAYE, GAYLE Moura Ot 726.90 ENTHESOPATHY, SITE NOS 12/06/2017 MERLE LOCKWOOD BAGGAGEMASTER Ot 719.40 JOINT PAIN-UNSPEC 12/06/2017 MERLE LOCKWOOD BAGGAGEMASTER Ot 729.1 MYALGIA AND MYOSITIS NOS 12/06/2017 CHEL DUKE MD Ot M06.9 RHEUMATOID ARTHRITIS, UNSPECIFIED 12/06/2017 CHEL DUKE MD Ot Z51.81 ENCOUNTER FOR THERAPEUTIC DRUG LEVEL MON 12/06/2017 CHEL DUKE MD Ot Z79.899 OTHER ANCHOR OPERATOR (CURRENT) DRUG THERAPY 12/06/2017 CHEL DUKE MD Ot M05.79 RHEU ARTHRITIS W RHEU FACTOR MULT SITE W 12/06/2017 JASWANT MCLEAN APRN Ot R06.02 SHORTNESS OF BREATH 12/06/2017 JASWANT MCLEAN APRN Ot R07.9 CHEST PAIN, UNSPECIFIED 12/06/2017 To BURKS MD Ot I10 ESSENTIAL (PRIMARY) HYPERTENSION 12/06/2017 To BURKS MD Ot M32.9 SYSTEMIC LUPUS ERYTHEMATOSUS, UNSPECIFIE 12/06/2017 To BURKS MD Ot R00.2 PALPITATIONS 12/06/2017 To BURKS MD Ot R07.9 CHEST PAIN, UNSPECIFIED 12/06/2017 VITALIY TESFAYE, To CHILDS Ot Z72.0 TOBACCO USE 12/06/2017 To BURKS MD Ot I10 ESSENTIAL (PRIMARY) HYPERTENSION 12/06/2017 To UBRKS MD Ot M32.9 SYSTEMIC LUPUS ERYTHEMATOSUS, UNSPECIFIE 12/06/2017 VITALIY TESFAYE, To CHILDS Ot R00.2 PALPITATIONS 12/06/2017 VITALIY TESFAYE, To CHILDS Ot R07.9 CHEST PAIN, UNSPECIFIED 12/06/2017 To BURKS MD Ot Z72.0 TOBACCO USE 12/06/2017 CHEL DUKE MD Ot 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 12/06/2017 CHEL DUKE MD Ot M05.79 RHEU ARTHRITIS W RHEU FACTOR MULT SITE W 12/06/2017 CHEL DUKE MD Ot M35.00 SICCA SYNDROME, UNSPECIFIED 12/06/2017 CHEL DUKE MD Ot M79.7 FIBROMYALGIA 12/06/2017 CHEL DUKE MD, Ot Z79.899 OTHER ANCHOR OPERATOR (CURRENT) DRUG THERAPY 12/06/2017 CHEL DUKE MD Ot M05.79 RHEU ARTHRITIS W RHEU FACTOR MULT SITE W 12/06/2017 CHEL DUKE MD Ot M05.79 RHEU ARTHRITIS W RHEU FACTOR MULT SITE W 12/06/2017 MELINDA TESFAYE, GAYLE Moura Ot M25.50 PAIN IN UNSPECIFIED JOINT 12/06/2017 MELINDA TESFAYE, GAYLE Moura Ot R53.81 OTHER MALAISE 12/06/2017 GAYLE LAWRENCE MD Ot R53.83 OTHER FATIGUE 12/06/2017 CHEL DUKE MD Ot M05.79 RHEU ARTHRITIS W RHEU FACTOR MULT SITE W Procedures Code [place] [address] THERAPUTIC INJ SQ/IM 11/17/2012 J1055 DEPO-PROVERA INJ 150 MG 11/17/2012 11648 URINE TEST (IN- HOUSE) 11/17/2012 70125 URINE TEST (IN- HOUSE) 02/21/2013 J1050 DEPO PROVERA 02/21/2013 24510 THERAPUTIC INJ SQ/IM 02/21/2013 65889 THERAPUTIC INJ SQ/IM 07/04/2013 J1050 DEPO PROVERA 07/04/2013 04812 URINE TEST (IN- HOUSE) 07/04/2013 Results Test Result Range Serum or plasma aspartate aminotransferase measurement (enzymatic activity/ volume) - 01/18/17 12:57 Serum or plasma aspartate aminotransferase measurement (enzymatic activity/ volume) 32 U/L 5-34 Serum or plasma alanine aminotransferase measurement (enzymatic activity/volume ) - 01/18/17 12:57 Serum or plasma alanine aminotransferase measurement (enzymatic activity/volume ) 31 U/L 0-55 Complete blood count (CBC) with automated white blood cell (WBC) differential - 03/22/17 14:21 Blood leukocytes automated count (number/volume) 5.7 10*3/uL 4.3-11.0 Blood erythrocytes automated count (number/volume) 3.91 10*6/uL 4.35-5.85 Venous blood hemoglobin measurement (mass/volume) 12.2 g/dL 11.5-16.0 Blood hematocrit (volume fraction) 36 % 35-52 Automated erythrocyte mean corpuscular volume 91 [foz_us] 80-99 Automated erythrocyte mean corpuscular hemoglobin (mass per erythrocyte) 31 pg 25-34 Automated erythrocyte mean corpuscular hemoglobin concentration measurement ( mass/volume) 34 g/dL 32-36 Automated erythrocyte distribution width ratio 15.3 % 10.0-14.5 Automated blood platelet count (count/volume) 255 10*3/uL 130-400 Automated blood platelet mean volume measurement 9.1 [foz_us] 7.4-10.4 Automated blood neutrophils/100 leukocytes 52 % 42-75 Automated blood lymphocytes/100 leukocytes 37 % 12-44 Blood monocytes/100 leukocytes 8 % 0-12 Automated blood eosinophils/100 leukocytes 2 % 0-10 Automated blood basophils/100 leukocytes 1 % 0-10 Blood neutrophils automated count (number/volume) 2.9 10*3 1.8-7.8 Blood lymphocytes automated count (number/volume) 2.1 10*3 1.0-4.0 Blood monocytes automated count (number/volume) 0.5 10*3 0.0-1.0 Automated eosinophil count 0.1 10*3/uL 0.0-0.3 Automated blood basophil count (count/volume) 0.1 10*3/uL 0.0-0.1 Serum or plasma creatinine measurement (mass/volume) - 03/22/17 14:21 Serum or plasma creatinine measurement (mass/volume) 0.78 mg/dL 0.60-1.30 Serum or plasma alanine aminotransferase measurement (enzymatic activity/volume ) - 03/22/17 14:21 Serum or plasma alanine aminotransferase measurement (enzymatic activity/volume ) 21 U/L 0-55 Serum or plasma C reactive protein measurement (mass/volume) - 03/22/17 14:21 Serum or plasma C reactive protein measurement (mass/volume) 0.13 mg /dL 0.00-0.50 Erythrocyte sedimentation rate by westergren method - 03/22/17 14:21 Erythrocyte sedimentation rate by westergren method 21 mm 0-20 Serum or plasma creatinine measurement (mass/volume) - 06/13/17 15:55 Serum or plasma creatinine measurement (mass/volume) 0.79 mg/dL 0.60-1.30 Serum or plasma alanine aminotransferase measurement (enzymatic activity/volume ) - 06/13/17 15:55 Serum or plasma alanine aminotransferase measurement (enzymatic activity/volume ) 11 U/L 0-55 Serum or plasma C reactive protein measurement (mass/volume) - 06/13/17 15:55 Serum or plasma C reactive protein measurement (mass/volume) 0.50 mg /dL 0.00-0.50 Serum or plasma complement C3 measurement (mass/volume) - 06/13/17 15:55 Complement C3 nephritic [mass/volume] in serum or plasma 103 % 73-183 Complement C4 [mass/volume] in serum or plasma - 06/13/17 15:55 Complement C4 [mass/volume] in serum or plasma 15 % 15- 59 ANTI-NUCLEAR AB (AUGIE) ANALYZER - 06/13/17 15:55 Screening antinuclear antibody (AUGIE) assay by enzyme immunoassay Positive <1:80 Anaplasma phagocytophilum IgG ab [titer] in serum <1: 80 Serum nuclear antibody pattern interpretation Homogeneous NR Serum DNA double strand antibody detection - 06/13/17 15:55 Serum DNA double strand antibody assay (units/volume) 217 [iU]/mL 0-300 DNA CONFIRM Positive NRG SS-A antibody assay - 06/13/17 15:55 SS-A antibody assay Positive NEGATIVE SS-B ab - 06/13/17 15:55 SS-B antibody assay Positive NEGATIVE [id number] - 06/13/17 15:55 [id number] Negative Negative [id number] - 06/13/17 15:55 SS-A antibody assay 50 H 0-19 SS-B antibody assay 37 H 0-19 Serum Gold extractable nuclear antigen (CHRISTOS) antibody assay (units/volume) < U 0-19 Scl-70 ab < U 0-19 Ribonucleic protein antibody assay <20 0-19 Serum Radha-1 extractable nuclear antibody assay (units/volume) < eq/ mL 0-19 [id number] - 06/13/17 15:55 [id number] Negative Negative Ribonucleic protein (HOTEL RECREATIONAL FACILITIES MANAGER) ab - 06/13/17 15:55 Ribonucleic protein antibody assay Negative Negative CHRISTOS CONFIR - 06/13/17 15:55 CHRISTOS CONFIR Complete NRG [id number] - 06/13/17 15:55 [id number] Negative Negative Complete blood count (CBC) with automated white blood cell (WBC) differential - 06/13/17 15:57 Blood leukocytes automated count (number/volume) 6.2 10*3/uL 4.3-11.0 Blood erythrocytes automated count (number/volume) 4.19 10*6/uL 4.35-5.85 Venous blood hemoglobin measurement (mass/volume) 12.6 g/dL 11.5-16.0 Blood hematocrit (volume fraction) 38 % 35-52 Automated erythrocyte mean corpuscular volume 90 [foz_us] 80-99 Automated erythrocyte mean corpuscular hemoglobin (mass per erythrocyte) 30 pg 25-34 Automated erythrocyte mean corpuscular hemoglobin concentration measurement ( mass/volume) 33 g/dL 32-36 Automated erythrocyte distribution width ratio 16.1 % 10.0-14.5 Automated blood platelet count (count/volume) 287 10*3/uL 130-400 Automated blood platelet mean volume measurement 9.4 [foz_us] 7.4-10.4 Automated blood neutrophils/100 leukocytes 65 % 42-75 Automated blood lymphocytes/100 leukocytes 24 % 12-44 Blood monocytes/100 leukocytes 7 % 0-12 Automated blood eosinophils/100 leukocytes 2 % 0-10 Automated blood basophils/100 leukocytes 1 % 0-10 Blood neutrophils automated count (number/volume) 4.0 10*3 1.8-7.8 Blood lymphocytes automated count (number/volume) 1.5 10*3 1.0-4.0 Blood monocytes automated count (number/volume) 0.5 10*3 0.0-1.0 Automated eosinophil count 0.2 10*3/uL 0.0-0.3 Automated blood basophil count (count/volume) 0.0 10*3/uL 0.0-0.1 Erythrocyte sedimentation rate by westergren method - 06/13/17 15:57 Erythrocyte sedimentation rate by westergren method 32 mm 0-20 Tick identification panel - 07/04/17 17:15 Serum Ehrlichia chaffeensis IgG antibody detection <1:16 <1:16 Serum Ehrlichia chaffeensis IgM antibody detection <1:10 <1:10 Serum Rickettsia rickettsii IgG antibody assay (units/volume) < <1:16 [place] spotted fever panel < <1:10 Francisella tularensis antibody assay 1:40 NR LYME AB G M 0.08 % 0.00-0.89 Interpretation of Lyme disease antibody assay Negative Negative Complete blood count (CBC) with automated white blood cell (WBC) differential - 11/29/17 10:48 Blood leukocytes automated count (number/volume) 6.0 10*3/uL 4.3-11.0 Blood erythrocytes automated count (number/volume) 4.31 10*6/uL 4.35-5.85 Venous blood hemoglobin measurement (mass/volume) 12.6 g/dL 11.5-16.0 Blood hematocrit (volume fraction) 37 % 35-52 Automated erythrocyte mean corpuscular volume 85 [foz_us] 80-99 Automated erythrocyte mean corpuscular hemoglobin (mass per erythrocyte) 29 pg 25-34 Automated erythrocyte mean corpuscular hemoglobin concentration measurement ( mass/volume) 34 g/dL 32-36 Automated erythrocyte distribution width ratio 14.0 % 10.0-14.5 Automated blood platelet count (count/volume) 244 10*3/uL 130-400 Automated blood platelet mean volume measurement 9.1 [foz_us] 7.4-10.4 Automated blood neutrophils/100 leukocytes 66 % 42-75 Automated blood lymphocytes/100 leukocytes 23 % 12-44 Blood monocytes/100 leukocytes 8 % 0-12 Automated blood eosinophils/100 leukocytes 2 % 0-10 Automated blood basophils/100 leukocytes 0 % 0-10 Blood neutrophils automated count (number/volume) 4.0 10*3 1.8-7.8 Blood lymphocytes automated count (number/volume) 1.4 10*3 1.0-4.0 Blood monocytes automated count (number/volume) 0.5 10*3 0.0-1.0 Automated eosinophil count 0.1 10*3/uL 0.0-0.3 Automated blood basophil count (count/volume) 0.0 10*3/uL 0.0-0.1 Serum or plasma creatinine measurement (mass/volume) - 11/29/17 10:48 Serum or plasma creatinine measurement (mass/volume) 0.81 mg/dL 0.60-1.30 Serum or plasma alanine aminotransferase measurement (enzymatic activity/volume ) - 11/29/17 10:48 Serum or plasma alanine aminotransferase measurement (enzymatic activity/volume ) 14 U/L 0-55 Serum or plasma C reactive protein measurement (mass/volume) - 11/29/17 10:48 Serum or plasma C reactive protein measurement (mass/volume) 1.54 mg /dL 0.00-0.50 Erythrocyte sedimentation rate by westergren method - 11/29/17 10:48 Erythrocyte sedimentation rate by westergren method 33 mm 0-20 ANTI-NUCLEAR AB (AUGIE) ANALYZER - 11/29/17 10:48 Screening antinuclear antibody (AUGIE) assay by enzyme immunoassay Positive <1:80 Anaplasma phagocytophilum IgG ab [titer] in serum <1: 80 Serum nuclear antibody pattern interpretation Homogeneous [facility] Serum DNA double strand antibody detection - 11/29/17 10:48 Serum DNA double strand antibody assay (units/volume) 211 [iU]/mL 0-300 DNA CONFIRM Positive [facility] Serum or plasma complement C3 measurement (mass/volume) - 11/29/17 10:48 Complement C3 nephritic [mass/volume] in serum or plasma 105 % 73-183 Complement C4 [mass/volume] in serum or plasma - 11/29/17 10:48 Complement C4 [mass/volume] in serum or plasma 13 % 15- 59 SS-A antibody assay - 11/29/17 10:48 SS-A antibody assay Positive Negative Blood or tissue narrative diagnostic report interpretation by moleculargenetics method - 11/29/17 10:48 Blood or tissue narrative diagnostic report interpretation by moleculargenetics method See Below [facility] SS-B ab - 11/29/17 10:48 SS-B antibody assay Positive Negative [id number] - 11/29/17 10:48 [id number] Negative Negative [id number] - 11/29/17 10:48 SS-A antibody assay 59 % 0-19 SS-B antibody assay 25 % 0-19 Serum Gold extractable nuclear antigen (CHRISTOS) antibody assay (units/volume) < U 0-19 Scl-70 ab < U 0-19 Ribonucleic protein antibody assay <20 0-19 Serum Radha-1 extractable nuclear antibody assay (units/volume) < % 0-19 [id number] - 11/29/17 10:48 [id number] Negative NRG Ribonucleic protein ([employer]) ab - 11/29/17 10:48 Ribonucleic protein antibody assay Negative Negative [id number] - 11/29/17 10:48 [id number] Negative Negative Encounters ACCT No. Visit Date/Time Discharge Status Pt. Type Provider Facility Loc./Unit Complaint [id number] 07/04/2013 11:49:00 07/04/2013 23:59:59 CLS Outpatient SIENA VERGARA DO [id number] 11/17/2012 16:25:00 11/17/2012 23:59:59 CLS Outpatient SIENA VERGARA DO [id number] 02/21/2013 10:36:00 Document Registration [id number] 11/29/2017 10:26:00 11/29/2017 23:59:59 CLS Outpatient CHEL DUKE MD [facility] LAB [id number] 07/04/2017 17:08:00 07/04/2017 23:59:59 CLS Outpatient GAYLE LAWRENCE MD [facility] LAB JOINT PAIN,FATIGUE, MALAISE,TICK BITE [id number] 06/13/2017 15:31:00 06/13/2017 23:59:59 CLS Outpatient CHEL DUKE MD [facility] LAB M05.79 [id number] 03/22/2017 14:08:00 03/22/2017 23:59:59 CLS Outpatient CHEL DUKE MD [facility] LAB MO5.79 [id number] 01/18/2017 12:47:00 01/18/2017 23:59:59 CLS Outpatient CHEL DUKE MD [facility] LAB M35.00,M79.7 [id number] 12/14/2016 09:00:00 12/14/2016 23:59:59 CLS Preadmit To BURKS MD [facility] CARD CHEST PAIN [id number] 12/13/2016 09:28:00 12/13/2016 23:59:59 CLS Outpatient To BURKS MD [facility] CARD CHEST PAIN [id number] 12/11/2016 11:49:00 12/11/2016 23:59:59 CLS Outpatient To BURKS MD [facility] CARD CHEST PAIN SYNDROME [id number] 11/07/2016 15:41:00 11/07/2016 23:59:59 CLS Outpatient JASWANT MCLEAN APRN [facility] RAD SOB, CP [id number] 12/27/2015 10:24:00 12/27/2015 23:59:59 CLS Outpatient CHEL DUKE MD [facility] LAB [id number] 12/12/2015 12:58:00 12/12/2015 23:59:59 CLS Outpatient CHEL DUKE MD [facility] 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 [id number] 11/28/2015 11:54:00 11/28/2015 23:59:59 CLS Outpatient CHEL DUKE MD [facility] LAB RHEUMATOID ARTHRITIS [id number] 08/23/2015 17:16:00 08/23/2015 19:26:00 DIS Emergency 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
[2017-12-09] MEDS ORDERED: LIDOCAINE 1% INJ 50 ML (XYLOCAINE) VIAL ONE (11:03)
[2017-12-09] MEDS ORDERED: NS IV 1000 ML 1,000 ML ONE (11:03)
[2017-12-09] MEDS ORDERED: HEParin (CATH LAB) 2,000 ML IV ONE (11:03)
[2017-12-09] MEDS ORDERED: NS IV 1000 ML 1,000 ML IV SCH ×2 (11:15→14:00)
[2017-12-09 11:28] LABS: HEMOGLOBIN 12.9 G/DL (11.5-16.0); MEAN PLATELET VOLUME 9.5 FL (7.4-10.4); RED BLOOD COUNT 4.39 10^6/uL (4.35-5.85); RED CELL DISTRIBUTION WIDTH 14.2 % (10.0-14.5); WHITE BLOOD COUNT 4.3 10^3/uL (4.3-11.0)
[2017-12-09 11:38] LABS: PROTHROMBIN TIME PATIENT 13.6 SEC (12.2-14.7)
[2017-12-09 11:45] LABS: ALANINE AMINOTRANSFERASE 13 U/L (0-55); ALKALINE PHOSPHATASE 60 U/L (40-136); BILIRUBIN,TOTAL 0.7 MG/DL (0.1-1.0); BUN/CREATININE RATIO 8; CALCIUM 8.9 MG/DL (8.5-10.1); CARBON DIOXIDE 24 MMOL/L (21-32); CHLORIDE 106 MMOL/L (98-107); CREATININE SERUM 0.88 MG/DL (0.60-1.30); GFR ESTIMATED > 60; GLUCOSE 81 MG/DL (70-105); POTASSIUM 3.4 MMOL/L (3.6-5.0); SODIUM 140 MMOL/L (135-145); TOTAL PROTEIN 7.8 GM/DL (6.4-8.2)
[2017-12-09] MEDS ORDERED: HYDR-3820 PO (11:51)
[2017-12-09] MEDS ORDERED: LEFL20TA18 PO (11:51)
[2017-12-09] MEDS ORDERED: LISI1TAB10 PO (11:51)
[2017-12-09] MEDS ORDERED: HYDR200T46 PO (11:51)
[2017-12-09] MEDS ORDERED: METH2.5T PO (11:51)
[2017-12-09] MEDS ORDERED: CARV12.53 PO ×2 (11:51→14:04)
[2017-12-09] MEDS ORDERED: PRED10TA22 PO (11:51)
[2017-12-09] MEDS ORDERED: AZAT50TA PO (11:51)
[2017-12-09] MEDS ORDERED: fentaNYL INJECTION 100 MCG/2 ML AMP ONE ×2 (12:07→13:40)
[2017-12-09] MEDS ORDERED: MIDAZOLAM 5 MG/5 ML (VERSED) VIAL ONE (12:07)
[2017-12-09] MEDS ORDERED: VERAPAMIL 5 MG/2 ML (CALAN) VIAL IV ONE (12:08)
[2017-12-09] MEDS ORDERED: HEParin 1000 UNIT/ML (10ML VIAL) FOR BOLUS ONE (12:08)
[2017-12-09] MEDS ORDERED: NITROGLYCERIN DRIP 25 MG/D5W 250 ML IV ONE (12:08)
[2017-12-09] MEDS ORDERED: MIDAZOLAM 2 MG/2 ML (VERSED) VIAL ONE (13:40)
[2017-12-09] MEDS ORDERED: LABETALOL HCL 20 MG/4 ML VIAL ONE (13:46)
--- NOTE | 2017-12-09 13:54 | Cardiac Procedure Note-CS/ASA ---
Pre-Procedure Note Pre-Op Procedure Note H&P Reviewed The H&P was reviewed, patient examined and no changes noted. Date H&P Reviewed: Dec 09, 2017 Time H&P Reviewed: 12:30 Conscious Sedation Pre-Proced Time Reviewed: 12:30 ASA Class: 3 Airway Mallampati Classification: (hamilton appropriate class) I. II. III, IV Lungs Heart ASA score ASA 1: a normal healthy patient ASA 2: a patient with a mild systemic disease (mid diabetes, controlled hypertension, obesity ASA 3: a patient with a severe systemic disease that limits activity (angina , COPD, prior Myocardial infarction) ASA 4: a patient with an incapacitating disease that is a constant threat to life (CHF, renal failure) ASA 5: a moribund patient not expected to survive 24 hrs. (ruptured aneurysm) ASA 6: a declared brain patient whose organs are being harvested. For emergent operations, add the letter E after the classification Grade 1 Sedation Plan: Analgesia, Amnesia, Plan communicated to team members, Discussed options with patient/fam, Discussed risks with patient/fam Note The patient is an appropriate candidate to undergo the planned procedure, sedation, and anesthesia. The patient immediately re-assessed prior to indication. To BURKS MD Dec 09, 2017 1:53 pm
--- NOTE | 2017-12-09 13:59 | Coronary Angiography Report ---
Coronary Angiography Report DATE OF PROCEDURE: 12/09/17 INDICATION: 1. Recurrent chest pain, low risk nuclear scan. 2. Severe hypertension refractory to medical therapy. PREOPERATIVE DIAGNOSIS: 1. Recurrent chest pain, low risk nuclear scan. 2. Severe hypertension refractory to medical therapy. POSTOPERATIVE DIAGNOSIS: 1. Patent epicardial coronary arteries. 2. Normal bilateral renal arteries. HISTORY: This is a 37-year-old lady with history of morbid obesity, severe hypertension, SLE, active smoking, who presented to us with chest pain episodes. A nuclear stress test was performed which was low risk therefore coronary angiography was deferred. However, the patient continued to have recurrent episodes of chest pain. Therefore, the patient was scheduled for coronary angiography. the patient also is on at least 3 medications for hypertension with severe hypertension. Systolic blood pressure was 196 mmHg. Therefore renal angiography is also recommended. PROCEDURES PERFORMED: 1.Coronary angiography. 2.Left heart catheterization. 3. Abdominal aortogram. 4. Selective bilateral renal angiogram. COMPLICATIONS: None. SPECIMENS: None. ESTIMATED BLOOD LOSS: 10 mL ANESTHESIA: Conscious sedation ANTICOAGULATION: IV heparin CONTRAST: 100 mL of Omnipaque. FLUOROSCOPY: 8.7 minutes. FLOUROSCOPY DOSE: [id number] [id number] PROCEDURE DETAILS: The patient is a 37 female and was brought to the physical laboratory assistant after informed consent was taken. All the risks and complications were explained in detail; this included the risk of bleeding, vascular damage, stroke , GA and even . The patient was draped and prepped in the usual sterile fashion. Access was gained in the right radial artery with a 6 Italian sheath. Coronary angiography and left heart catheterization was performed with the [place] catheter. abdominal aortogram was performed with a pigtail catheter and selective renal angiogram was performed with a JR4 catheter. FINDINGS: 1.Left main: patent 2.LAD: patent 3.Left circumflex artery: patent 4.RCA: patent 5.Left heart catheterization: aortic pressure 185/114 mmHg, LV pressure 167/14 mmHg, LVEDP 25 mmHg, normal LV function with no wall motion abnormalities. No gradient across the aortic valve. 6. Abdominal aortogram: No significant PAD. 7. Bilateral selective renal angiogram: Patent renal arteries bilaterally. CONCLUSIONS: 1. Patent epicardial coronary arteries. Continue primary prevention measures. 2. Severe hypertension. Normal bilateral renal arteries. Rochelle Barnes MD, FACP, FACC, [facility] Interventional Cardiology To BARNES MD Dec 09, 2017 1:59 pm
[2017-12-09] MEDS ORDERED: PATIENT MAY USE OWN MEDS, ALL PO SCH (14:00)
--- NOTE | 2017-12-09 14:05 | Discharge Inst-Post CATH ---
Discharge Inst-CATH Post Cardiac Cath D/C Inst Follow Up/Plan Dr. Barnes in one to 2 weeks. CARDIAC CATH DISCHARGE INSTRUCTIONS *Hold Metformin for 48 hours post heart cath. ACTIVITY * Go Home directly and rest. * Limit activity of the leg (or wrist if it was used) for 7 days including aerobics, swimming, jogging, bicycling, etc. * Restrict stair-climbing for 7 days if possible, if not, climb up with your non -cath leg, then bring together on the same step. * Avoid lifting, pushing, pulling or excessive movement of the affected extremity for 7 days. * Customary sexual activity may be resumed after 2 days-use caution not to use a position that strains or causes pain to the affected extremity. * No driving for 24 hours. * NO SMOKING. * Avoid straining for bowel movements for 7 days. * Gentle walking on level ground is allowed. * Returning to work will depend on the type of procedure and the results. Your doctor will discuss this with you. CALL YOUR DOCTOR FOR ANY OF THE FOLLOWING: *If bleeding from the puncture site occurs- Apply gentle pressure to site with clean cloth and call your doctor or EMS. * If a knot or lump forms under the skin, increases in size, or causes pain. * If bruising appears to be worsening or moving further down your leg instead of disappearing. * Temperature above 101 F. CARE OF YOUR GROIN INCISION; * Bruising or purple discoloration of the skin near the puncture site is common. * You may shower only, no bathtub bathing for 5 days. Be careful to avoid slipping as your leg may feel stiff. * If a closure device was used on your femoral artery, please see the attached guide regarding care of the device and your leg. * REMOVE the dressing from your groin the next day after your procedure in the shower. CARE OF YOUR WRIST INCISION; * Bruising or purple discoloration of the skin near the puncture site is common. * You may shower. * DO NOT submerge wrist. * Remove dressing in 24 hours. To BARNES MD Dec 09, 2017 2:05 pm
--- NOTE | 2017-12-09 14:08 | Cardiology Discharge Summary ---
Diagnosis/Chief Complaint Date of Admission 12/09/2017 Date of Discharge 12/09/2017 Admission Diagnosis recurrent chest pain episodes, severe hypertension refractory to medical therapy Final/Discharge Diagnosis patent epicardial coronary arteries. Patent bilateral renal arteries. Severe hypertension Chief Complaint/HPI Chief Complaint/HPI this is a 37-year-old lady with history of morbid obesity, severe hypertension, SLE, active smoking who presents with recurrent episodes of chest pain. Nuclear stress test was low risk therefore coronary angiography was deferred previously. However she continues to have recurrent chest pain episodes. Due to significant risk factors for CAD coronary angiography was recommended. The patient is also on 3 antihypertensive medications and continues to be severely hypertensive therefore renal angiography was recommended. Discharge Summary Procedures coronary angiography shows patent epicardial coronary arteries. Normal LV function however elevated LVEDP suggesting diastolic dysfunction. Likely due to hypertensive heart disease. Renal angiography showed patent bilateral renal arteries. Discharge Physical Examination stable Hospital Course stable Pending Labs Laboratory Tests 12/09/17 11:20: White Blood Count 4.3, Red Blood Count 4.39, Hemoglobin 12.9, Hematocrit 38, Mean Corpuscular Volume 85, Mean Corpuscular Hemoglobin 29, Mean Corpuscular Hemoglobin Concent 34, Red Cell Distribution Width 14.2, Platelet Count 221, Mean Platelet Volume 9.5, Prothrombin Time 13.6, INR Comment 1.0, Activated Partial Thromboplast Time 39, Sodium Level 140, Potassium Level 3.4, Chloride Level 106, Carbon Dioxide Level 24, Anion Gap 10, Blood Urea Nitrogen 7, Creatinine 0.88, Estimat Glomerular Filtration Rate > 60, BUN/Creatinine Ratio 8 , Glucose Level 81, Calcium Level 8.9, Total Bilirubin 0.7, Aspartate Amino Transf (AST/SGOT) 21, Alanine Aminotransferase (ALT/SGPT) 13, Alkaline Phosphatase 60, Total Protein 7.8, Albumin 4.0 Discussion & Recommendations Discussion increase carvedilol to 25 mg twice a day. Continue hydrochlorothiazide and lisinopril. Follow-up with Dr. Tinoco in one to 2 weeks. Follow up appt.: Dr. Barnes in one to 2 weeks. Dicharge Diet: Low Sodium Diet Activity as Tolerated: Yes Home Medications Reviewed patient Home Medication Reconciliation Form Discharge Home Medications: Reviewed and agree with Discharge Medication list on patient's Discharge Instruction sheet Condition at discharge stable Instructions to patient/family Dr. Barnes in one to 2 weeks. To BARNES MD Dec 09, 2017 2:08 pm
[2017-12-09] MEDS ORDERED: HYDROcodone/APAP 10 MG/325 MG (LORTAB) TAB PO ONE (14:30)
[2017-12-09] MEDS ORDERED: fentaNYL INJECTION 100 MCG/2 ML AMP IVP ONE (14:30)
[2017-12-09] MEDS ORDERED: PROMETHAZINE INJ 25 MG/ML (PHENERGAN) AMP IVP ONE (15:00)
[2017-12-09] MEDS ORDERED: LABETALOL INJECTION 200 MG in NS (IVPB) 160 ML IV SCH (15:00)
[2017-12-09] MEDS ORDERED: CARVEDILOL 12.5 MG (COREG) TABLET PO ONE (17:45)
== END 2017-12-09 21:20 | disposition home or self-care (01) ==
LOC: CATH 10:54 → ICU 14:22 → CATH 21:20
PROVIDERS: ATTEND Internal Medicine Interventional Cardiology
DX: R07.9 Chest pain, unspecified (principal); I10 Essential (primary) hypertension; M32.9 Systemic lupus erythematosus, unspecified; F17.210 Nicotine dependence, cigarettes, uncomplicated; Z79.899 Other long term (current) drug therapy; E66.01 Morbid (severe) obesity due to excess calories; Z68.41 Body mass index [BMI] 40.0-44.9, adult
CPT/HCPCS: 36252; 36415; 75625; 80053; 85027; 85610; 85730; 87081; 93005; 93458

== ENCOUNTER → 2020-05-11 | Outpatient (CLI) | payer MEDICAID, OTHER ==
[~2020-05-11] MED LIST changes: +ACHYD1T PO; +AZAT50TA PO; +CARV12.53 PO; +HYDR200T46 PO; +LEFL20TA18 PO; +LISI1TAB26 PO; +MTX2.5T PO; +PRED10TA22 PO
--- NOTE | 2020-05-11 14:13 | Diagnostic Imaging Report ---
INDICATION: Discoid lupus. COMPARISON: Radiograph of the right wrist dated July 12, 2010. TECHNIQUE: Six radiographs of the bilateral hands dated May 11, 2020. FINDINGS: Left: No acute fracture or dislocation. No destructive osseous process. Narrowing of the radiocarpal joint with subchondral cyst formation involving the distal radius. Otherwise, joint spaces are well-maintained. No significant erosive changes. No suspicious radiopaque foreign body. Right: No acute fracture or dislocation. No destructive osseous process. Mild scattered degenerative changes, greatest involving the radiocarpal joint and first MCP joint. Mild ulna minus variant suggested. No suspicious radiopaque foreign body. IMPRESSION: No acute fracture with mild degenerative changes, greatest involving the radiocarpal joints bilaterally. Possible mild right ulnar minus configuration. This could be confirmed with dedicated radiographs of the right wrist. Dictated by: Dictated on workstation # [id number]
--- NOTE | 2020-05-11 14:17 | Diagnostic Imaging Report ---
INDICATION: Lupus. COMPARISON: None available. TECHNIQUE: Six radiographs of the bilateral feet dated May 11, 2020. FINDINGS: No acute fracture or dislocation. No destructive osseous process. Mild hallux valgus metatarsus primus varus with bunion formation bilaterally. Small bilateral plantar calcaneal enthesophytes. Beaking of the right talar neck without additional evidence of tarsal coalition. No significant erosive changes. Mild scattered degenerative changes, greatest involving the first MTP joints bilaterally. No suspicious radiopaque foreign body. IMPRESSION: 1. No acute osseous abnormality with mild degenerative changes, greatest involving the bilateral first MTP joints. 2. Mild hallux valgus metatarsus primus varus with bunion formation. 3. Additional findings, as above. Dictated by: Dictated on workstation # [id number]
[2020-05-11 21:48] LABS: HEPATITIS C ANTIBODY C Non-Reactive (Non-Reactive)
== END ==
LOC: RAD 10:35
PROVIDERS: ATTEND Internal Medicine Rheumatology
DX: M20.12 Hallux valgus (acquired), left foot (principal); M20.11 Hallux valgus (acquired), right foot; M21.612 Bunion of left foot; M21.611 Bunion of right foot; M77.32 Calcaneal spur, left foot; M19.071 Primary osteoarthritis, right ankle and foot; M19.072 Primary osteoarthritis, left ankle and foot; M19.041 Primary osteoarthritis, right hand; M19.042 Primary osteoarthritis, left hand; M35.00 Sjogren syndrome, unspecified; L93.0 Discoid lupus erythematosus; Z79.899 Other long term (current) drug therapy
CPT/HCPCS: 73130; 73630; 82306; 85652; 86038; 86039; 86141; 86160 ×2; 86200; 86225; 86235; 86431; 86480; 86704; 86803; 87340; G0499; 36415; 86706

== ENCOUNTER 2020-10-11 11:34 | Outpatient (RCR) | payer MEDICAID ==
[~2020-10-11] VITALS: Ht 160 cm; Wt 103.2 kg
[2020-10-11 11:30] VITALS: BP 190/91
[2020-10-11] MEDS ORDERED: HEParin (CENTRAL IV FLUSH) 500 UNIT/5 ML SYR ONE (11:38)
== END 2021-01-09 | disposition home or self-care (01) ==
LOC: SDC 11:34
PROVIDERS: ATTEND Nurse Practitioner Family
DX: Z45.2 Encounter for adjustment and management of vascular access device (principal)
CPT/HCPCS: 96523

== ENCOUNTER 2021-03-03 10:15 | Outpatient (CLI) | payer MEDICAID ==
[~2021-03-03] VITALS: Ht 160 cm; Wt 103.2 kg
[2021-03-03] MEDS ORDERED: NS IV 1000 ML 1,000 ML IV ONE (10:30)
[2021-03-03] MEDS ORDERED: fentaNYL INJ 100 MCG/2 ML AMP IVP ONE (10:30)
[2021-03-03] MEDS ORDERED: ONDANSETRON 4 MG/2 ML (SDV) Z0FRAN IVP ONE (10:30)
[2021-03-03] MEDS ORDERED: cefTRIAXone FOR IV USE 1,000 MG in WATER (STERILE) FOR INJECTION 10 ML IV ONE (10:30)
[2021-03-03 10:56] LABS: BILIRUBIN,URINE NEGATIVE (NEGATIVE); CLARITY,URINE CLEAR; COLOR,URINE YELLOW; GLUCOSE, URINE (UA) NEGATIVE (NEGATIVE); KETONES,URINE NEGATIVE (NEGATIVE); LEUKOCYTE ESTERASE ,URINE 1+ (NEGATIVE); NITRITE,URINE NEGATIVE (NEGATIVE); PROTEIN,URINE NEGATIVE (NEGATIVE)
--- NOTE | 2021-03-03 10:56 | Diagnostic Imaging Report ---
INDICATION: Chest pain PA and lateral chest Heart size and pulmonary vascularity are normal. Lungs are clear. There are no effusions or pneumothoraces. Left subclavian Port-A-Cath tip projects over the innominate vein and is looped back upon itself. IMPRESSION: The Port-A-Cath is looped back upon itself in the left innominate vein. Chest otherwise unremarkable. Dictated by: Dictated on workstation # [id number]
[2021-03-03 11:14] LABS: BACTERIA,URINE FEW /HPF; RBC,URINE RARE /HPF
[2021-03-03] MEDS ORDERED: fentaNYL INJ 100 MCG/2 ML AMP IV PRN ×2 (11:15)
[2021-03-03 11:16] LABS: BASOPHILS % (AUTO) 0 % (0-10); EOSINOPHILS # (AUTO) 0.1 10^3/uL (0.0-0.3); EOSINOPHILS % (AUTO) 2 % (0-10); HEMATOCRIT 38 % (35-52); HEMOGLOBIN 12.2 g/dL (11.5-16.0); LYMPHOCYTES # (AUTO) 1.6 10^3/uL (1.0-4.0); LYMPHOCYTES % (AUTO) 31 % (12-44); MEAN CORPUSCULAR HEMOGLOBIN 25 pg (25-34); MEAN CORPUSCULAR HGB CONC 32 g/dL (32-36); MEAN CORPUSCULAR VOLUME 79 fL (80-99); MEAN PLATELET VOLUME 8.8 fL (9.0-12.2); MONOCYTES # (AUTO) 0.4 10^3/uL (0.0-1.0); MONOCYTES % (AUTO) 7 % (0-12); NEUTROPHILS % (AUTO) 59 % (42-75); PLATELET COUNT 287 10^3/uL (130-400); WHITE BLOOD COUNT 5.2 10^3/uL (4.3-11.0)
[2021-03-03 11:33] LABS: ALANINE AMINOTRANSFERASE 12 U/L (0-55); ALBUMIN 3.9 GM/DL (3.2-4.5); ALKALINE PHOSPHATASE 75 U/L (40-136); BILIRUBIN,TOTAL 0.5 MG/DL (0.1-1.0); BUN/CREATININE RATIO 6; CALCIUM 8.6 MG/DL (8.5-10.1); CARBON DIOXIDE 20 MMOL/L (21-32); CHLORIDE 105 MMOL/L (98-107); CREATININE SERUM 0.97 MG/DL (0.60-1.30); GFR ESTIMATED > 60; GLUCOSE 81 MG/DL (70-105); POTASSIUM 3.2 MMOL/L (3.6-5.0); SODIUM 135 MMOL/L (135-145); TOTAL PROTEIN 7.4 GM/DL (6.4-8.2)
[2021-03-03 11:50] VITALS: BP 175/102
== END 2021-03-03 14:00 ==
LOC: SDC 10:15
PROVIDERS: ATTEND Nurse Practitioner Family
DX: Z45.2 Encounter for adjustment and management of vascular access device (principal); E86.0 Dehydration; R07.9 Chest pain, unspecified; R05 Cough; R07.81 Pleurodynia
CPT/HCPCS: 36415; 36591; 71046; 80053; 81000; 85025; 87088; 96360; 96374; 96375

== ENCOUNTER → 2021-03-15 | Outpatient (CLI) | payer MEDICAID ==
[~2021-03-15] MED LIST changes: +ALPR0.25 PO; +GABA-486 PO; +PRD20T PO; +VALA500T4 PO
--- NOTE | 2021-03-15 17:45 | Diagnostic Imaging Report ---
INDICATION: Chest pain. EXAMINATION: PA and lateral chest obtained at 04:49 p.m. and compared to 03/03/2021. FINDINGS: Heart and mediastinal silhouette are normal in appearance. The lungs appear clear. There is no pneumothorax or pleural fluid. Port-A-Cath remains in place with its catheter looped in the left innominate vein, unchanged compared to the prior study. IMPRESSION: No acute infiltrate or pneumothorax or pleural fluid. Port-A-Cath again seen with its catheter looped in the left innominate vein. Dictated by: Dictated on workstation # [id number]
== END ==
LOC: RAD 16:29
PROVIDERS: ATTEND Nurse Practitioner Family
DX: R07.9 Chest pain, unspecified (principal)
CPT/HCPCS: 71046

== ENCOUNTER 2021-03-16 06:18 | Outpatient (CLI) | payer MEDICAID ==
[~2021-03-16] VITALS: Ht 160 cm; Wt 104.3 kg
[~2021-03-16 06:18] MED LIST changes: -ALPR0.25 PO; -GABA-486 PO; -PRD20T PO; -VALA500T4 PO
[2021-03-16] MEDS ORDERED: ALPR0.25 PO (11:21)
[2021-03-16] MEDS ORDERED: GABA-486 PO (11:21)
[2021-03-16] MEDS ORDERED: VALA500T4 PO (11:21)
[2021-03-16] MEDS ORDERED: PRD20T PO (11:21)
== END 2021-03-16 11:30 | disposition home or self-care (01) ==
LOC: PREOP 06:18
PROVIDERS: ATTEND Surgery
DX: Z01.818 Encounter for other preprocedural examination (principal)

== ENCOUNTER 2021-03-17 06:39 | Day surgery (SDC) | payer MEDICAID ==
[2021-03-17] VITALS (7 sets, daily range): BP systolic 121–168; BP diastolic 59–99
[~2021-03-17] VITALS: Ht 160 cm; Wt 104.3 kg
[~2021-03-17 06:39] MED LIST changes: +ALPR0.25 PO; +GABA-486 PO; +PRD20T PO; +VALA500T4 PO
[2021-03-17] MEDS ORDERED: LACTATED RINGERS 1,000 ML IV PRN (06:45)
[2021-03-17] MEDS ORDERED: ceFAZolin 2 GM IV Premixed 50 ML IV ONE (06:45)
[2021-03-17] MEDS ORDERED: PROPOFOL INJECTION 50 ML IV ONE ×2 (06:55→08:27)
[2021-03-17] MEDS ORDERED: MIDAZOLAM 2 MG/2 ML (VERSED) VIAL ONE (06:58)
[2021-03-17] MEDS ORDERED: CATHETER FLUSH 10 ML SYR IV PRN (07:15)
[2021-03-17] MEDS ORDERED: LIDOCAINE/EPI 1%-1:100,000 (XYLOCAINE) 20ML ONE ×2 (07:18→08:13)
[2021-03-17] MEDS ORDERED: 0.9% SODIUM CHLORIDE PF INJ 20 ML VIAL ONE (07:18)
[2021-03-17] MEDS ORDERED: HEParin (CENTRAL IV FLUSH) 500 UNIT/5 ML SYR ONE (07:18)
[2021-03-17] MEDS ORDERED: fentaNYL INJ 100 MCG/2 ML AMP ONE (07:58)
--- NOTE | 2021-03-17 08:01 | Progress Note-Pre Operative ---
Pre-Operative Progress Note H&P Reviewed The H&P was reviewed, patient examined and no changes noted. Date Seen by Provider: March 17, 2021 Time Seen by Provider: 08:00 Date H&P Reviewed: March 17, 2021 Time H&P Reviewed: 08:00 Pre-Operative Diagnosis: MALFUNCTIONING PORT POLLO GLEZ DO March 17, 2021 08:01
[2021-03-17] MEDS ORDERED: ONDANSETRON 4 MG/2 ML (SDV) Z0FRAN ONE ×2 (08:09→09:00)
--- NOTE | 2021-03-17 08:57 | Discharge Inst-Simple/Standard ---
Discharge Inst-Standard Patient Instructions/Follow Up Plan of Care/Instructions/FU: 2 WEEKS AMARIS Activity as Tolerated: No Discharge Diet: Regular Diet Other Inst to Patient Follow up Appt: Make appointment for 2 week. Instructions: No lifting greater than 10 pounds. No strenuous activity. May shower in 24 hours, no tub bath or soaking. Use incentive spirometer at home as directed. No Smoking Skin/Wound Care: You have special glue over your incision that will fall off on it's own. ICE PACK ON 15 MIN AND OFF 30 MIN AND REPEAT FOR 48 HOURS. THIS DECREASES SWELLING AND DISCOMFORT. Symptoms to Report: Appetite Changes, Extremity Discoloration, Numbness/Tingling, Swelling Increased, Bleeding Excessive, Eyesight Changes, Pain Increased, Urine Color Change, Constipation(Persistent), Fever over 101 degree F, Pain/Pressure in chest, Urinating Difficulty, Cough Up/Vomit Blood, Heart Beat Irreg/Pounding, Pain/Pressure in jaw, Vaginal Bleeding Increase, Cramps in feet or legs, Lightheadedness, Pain/Pressure in shoulder, Diarrhea(Persistent), Memory Changes Suddenly, Questions/Concerns, Weight gain consecutive days, Dizziness/Fainting, Nausea/Vomiting, Shortness of Breath, Weight gain over 2 pounds If questions or concerns contact your physician Or seek help at emergency department. POLLO GLEZ DO March 17, 2021 08:57
--- NOTE | 2021-03-17 09:03 | Progress Note-Post Operative ---
Post-Operative Progess Note Surgeon (s)/Medical Office Assistant (s) Surgeon POLLO GLEZ DO Medical Office Assistant: NA Pre-Operative Diagnosis MALFUNCTIONING PORT Post-Operative Diagnosis SAME Procedure & Operative Findings Date of Procedure 03/17/21 Procedure Performed/Findings PROCEDURE: Removal of port, U/S guided port placement right IJ. COMPLICATIONS: None. INDICATIONS: The patient is a 41 year-old female who had a port previously placed. Patient port notfuntioning and causing pain wants removed and replaced. The patient was explained risk and benefits of the procedure and wished to proceed with procedure. Consent was signed on the chart. PROCEDURE: The patient was taken to the operating suite and was prepped and draped in sterile fashion. A surgical pause was performed. Local anesthetic was infiltrated to the area around the port. A number 15 blade scalpel was used to make an incision. Cautery was used to dissect down to the port which was then grasped and then dissected around. The catheter was removed in its entirety. The port was then able to be dissected out of the pocket and elevated. The wound was then irrigated with copious amounts of irrigation. Hemostasis had been achieved. The subcutaneous tissues were then reapproximated using 3-0 Vicryl. Ultrasound was used to locate the internal jugular vein. Once located anesthetic was infiltrated above it. Using micro-access kit, the right internal vein was accessed. Dark nonpulsatile blood was withdrawn. The wire was inserted. Fluoroscopy assured proper placement. The needle was removed. The micro-access dilator was advanced over the wire and the wire was removed. The regular wire was inserted and fluoroscopy assured proper placement. The wire was then secured. Local anesthetic was used to anesthetize from the neck for tunneling down to the right chest and for pocket creation. A 15 blade scalpel was used to make an incision over the right chest. Cautery was used to dissect down to the pectoral fascia. A pocket was created with blunt dissection. The dilator sheath was then advanced over the wire under fluoroscopy and the dilator and wire were removed. The Groshong catheter was inserted through the sheath and the sheath was then removed. The Groshong wire was removed. The catheter was then tunneled to the right chest pocket. Fluoroscopy was used to cut to length and this was then attached to the port which was then placed within the pocket. The port was then accessed without difficulty. It was then flushed with saline and then heparin. The subcutaneous tissues were then reapproximated using 3-0 Vicryl. The areas were then washed and dried. Skin Affix was placed over incision. The insertion point of the neck Skin Affix was placed over the incision. The patient tolerated the procedure well without complication and was taken to recovery room in stable condition. Chest x-ray is pending. Anesthesia Type mac c local Estimated Blood Loss Estimated blood loss (mL): minimal Specimens/Packing Specimens Removed POLLO George DO March 17, 2021 09:03
--- NOTE | 2021-03-17 09:03 | Anesthesia-General Post-Op ---
MAC Patient Condition Mental Status/LOC: Same as Preop Cardiovascular: Satisfactory Nausea/Vomiting: Absent Respiratory: Satisfactory Pain: Controlled Complications: Absent Post Op Complications Complications None Follow Up Care/Instructions Patient Instructions None needed. Anesthesiology Discharge Order Discharge Order Patient is doing well, no complaints, stable vital signs, no apparent adverse anesthesia problems. No complications reported per nursing. VASILE JARA CRNA March 17, 2021 09:03
[2021-03-17] MEDS ORDERED: MEPERIDINE (DEMEROL) INJ 50 MG/ML ONE (09:05)
[2021-03-17] MEDS ORDERED: PROMETHAZINE INJ 25 MG/ML (PHENERGAN) AMP ONE (09:11)
[2021-03-17] MEDS ORDERED: ONDANSETRON 4 MG/2 ML (SDV) Z0FRAN IVP PRN (09:15)
[2021-03-17] MEDS ORDERED: MEPERIDINE (DEMEROL) INJ 50 MG/ML IVP ONE (09:15)
[2021-03-17] MEDS ORDERED: morphine INJ 10 MG/ML 1ML (SYR OR VIAL) IVP ONE (09:15)
--- NOTE | 2021-03-17 09:26 | Diagnostic Imaging Report ---
Indication: Port-A-Cath placement. Time of exam: 9:20 AM Correlation is made with prior chest from 03/15/2021. Heart size normal.. Right chest wall port has been placed with tip in the overlying SVC. There is no pneumothorax. Lungs are clear. No effusion. IMPRESSION: Right chest wall port placement. No pneumothorax is identified. Dictated by: Dictated on workstation # [id number]
--- NOTE | 2021-03-17 09:33 | Diagnostic Imaging Report ---
INDICATION: Fluoroscopy for port placement. Fluoroscopy was provided in the OR during chest wall port placement. 23 seconds of fluoroscopic time was utilized. 2 images were obtained demonstrating a right-sided port with tip overlying SVC. IMPRESSION: Fluoroscopy during port placement. Dictated by: Dictated on workstation # [id number]
== END 2021-03-17 10:15 | disposition home or self-care (01) ==
LOC: SDC 06:39
PROVIDERS: ATTEND Surgery
DX: T82.514A Breakdown (mechanical) of infusion catheter, initial encounter (principal); I10 Essential (primary) hypertension; E66.01 Morbid (severe) obesity due to excess calories; Z68.41 Body mass index [BMI] 40.0-44.9, adult; F17.210 Nicotine dependence, cigarettes, uncomplicated; Z79.899 Other long term (current) drug therapy
CPT/HCPCS: 36561; 36589; 71045; 76000; 84703; 87081; C1788

== ENCOUNTER → 2021-05-29 | Outpatient (CLI) | payer MEDICAID ==
[2021-05-29 09:20] LABS: ALBUMIN 3.8 GM/DL (3.2-4.5); BILIRUBIN,TOTAL 0.4 MG/DL (0.1-1.0); CALCIUM 8.9 MG/DL (8.5-10.1); CREATININE SERUM 1.49 MG/DL (0.60-1.30); POTASSIUM 3.7 MMOL/L (3.6-5.0); TOTAL PROTEIN 7.4 GM/DL (6.4-8.2)
== END ==
LOC: LAB 08:35
PROVIDERS: ATTEND Internal Medicine Cardiovascular Disease
DX: E78.2 Mixed hyperlipidemia (principal)
CPT/HCPCS: 36415; 80053; 80061

== ENCOUNTER → 2021-06-28 | Outpatient (CLI) | payer MEDICAID ==
[2021-06-28 12:26] LABS: BILIRUBIN,TOTAL 0.6 MG/DL (0.1-1.0); CALCIUM 9.7 MG/DL (8.5-10.1); CREATININE SERUM 1.57 MG/DL (0.60-1.30); POTASSIUM 3.9 MMOL/L (3.6-5.0); TOTAL PROTEIN 7.7 GM/DL (6.4-8.2)
== END ==
LOC: LAB 11:45
PROVIDERS: ATTEND Family Medicine
DX: N28.9 Disorder of kidney and ureter, unspecified (principal); I10 Essential (primary) hypertension
CPT/HCPCS: 36415; 80053

== ENCOUNTER → 2021-08-21 | Outpatient (CLI) | payer MEDICAID ==
[2021-08-21 14:32] LABS: BASOPHILS % (AUTO) 0 % (0-10); EOSINOPHILS # (AUTO) 0.3 10^3/uL (0.0-0.3); EOSINOPHILS % (AUTO) 4 % (0-10); HEMATOCRIT 31 % (35-52); HEMOGLOBIN 10.1 g/dL (11.5-16.0); LYMPHOCYTES # (AUTO) 1.4 10^3/uL (1.0-4.0); LYMPHOCYTES % (AUTO) 23 % (12-44); MEAN CORPUSCULAR HEMOGLOBIN 29 pg (25-34); MEAN CORPUSCULAR HGB CONC 33 g/dL (32-36); MEAN CORPUSCULAR VOLUME 88 fL (80-99); MEAN PLATELET VOLUME 8.5 fL (9.0-12.2); MONOCYTES # (AUTO) 0.5 10^3/uL (0.0-1.0); MONOCYTES % (AUTO) 8 % (0-12); NEUTROPHILS # (AUTO) 3.8 10^3/uL (1.8-7.8); NEUTROPHILS % (AUTO) 64 % (42-75); PLATELET COUNT 285 10^3/uL (130-400)
[2021-08-21 14:37] LABS: BILIRUBIN,URINE NEGATIVE (NEGATIVE); CLARITY,URINE CLEAR; COLOR,URINE YELLOW; GLUCOSE, URINE (UA) NEGATIVE (NEGATIVE); KETONES,URINE NEGATIVE (NEGATIVE); LEUKOCYTE ESTERASE ,URINE TRACE (NEGATIVE); NITRITE,URINE NEGATIVE (NEGATIVE); PROTEIN,URINE NEGATIVE (NEGATIVE)
[2021-08-21 14:44] LABS: BACTERIA,URINE NEGATIVE /HPF; SQUAMOUS EPITHELIAL CELL,UR 0-2 /HPF
[2021-08-21 14:50] LABS: ALBUMIN 3.5 GM/DL (3.2-4.5)
[2021-08-21 14:52] LABS: CALCIUM 8.7 MG/DL (8.5-10.1)
[2021-08-21 14:56] LABS: CREATININE SERUM 1.45 MG/DL (0.60-1.30); PHOSPHORUS 3.9 MG/DL (2.3-4.7)
== END ==
LOC: LAB 14:07
PROVIDERS: ATTEND Nurse Practitioner
DX: N18.31 Chronic kidney disease, stage 3a (principal)
CPT/HCPCS: 36415; 80069; 81000; 82043; 82306; 83970; 84550; 85025

== ENCOUNTER → 2021-08-23 | Outpatient (CLI) | payer MEDICAID | LOC: CARD 10:50 | PROVIDERS: ATTEND Internal Medicine Cardiovascular Disease | DX: I10 Essential (primary) hypertension (principal) | CPT/HCPCS: 93306 ==

== ENCOUNTER → 2021-08-23 | Outpatient (CLI) | payer MEDICAID ==
--- NOTE | 2021-08-23 12:36 | Diagnostic Imaging Report ---
PROCEDURE: US Renal Bilateral. TECHNIQUE: Multiple real-time grayscale images were obtained over the kidneys in various projections bilaterally. INDICATION: Chronic kidney disease stage III. Right kidney measures 10.0 x 5.6 x 4.6 cm and the left kidney measures 10.3 x 5.3 x 5.7 cm. Cortical thickness and echogenicity is normal. No calculi are seen. There is no hydronephrosis. Bilateral ureteral jets are visualized. IMPRESSION: Unremarkable renal ultrasound. Dictated by: Dictated on workstation # [id number]
== END ==
LOC: RAD 10:49
PROVIDERS: ATTEND Nurse Practitioner
DX: N18.31 Chronic kidney disease, stage 3a (principal)
CPT/HCPCS: 76770

== ENCOUNTER 2021-10-10 11:06 | Outpatient (RCR) | payer MEDICAID ==
[2021-08-09 13:15] VITALS: BP 105/74
[2021-09-06 11:00] VITALS: BP 105/74
[~2021-10-10 11:06] MED LIST changes: +HEParin (CENTRAL IV FLUSH) 500 UNIT/5 ML SYR IV ONE; +HEParin (CENTRAL IV FLUSH) 500 UNIT/5 ML SYR ONE; -LISI1TAB26 PO; +LISI1TAB48 PO
[2021-10-10 11:15] VITALS: BP 158/97
== END 2021-11-07 | disposition home or self-care (01) ==
LOC: SDC 11:06
PROVIDERS: ATTEND Nurse Practitioner Family
DX: Z45.2 Encounter for adjustment and management of vascular access device (principal)
CPT/HCPCS: 96523

== ENCOUNTER → 2021-10-16 | Outpatient (CLI) | payer MEDICAID ==
[~2021-10-16] MED LIST changes: +CATHETER FLUSH 10 ML SYR IV PRN; -HEParin (CENTRAL IV FLUSH) 500 UNIT/5 ML SYR IV ONE; -HEParin (CENTRAL IV FLUSH) 500 UNIT/5 ML SYR ONE; +IOHEXOL 300 MG/ML 50 ML (OMNIPAQUE 300) VIAL IV ONE
--- NOTE | 2021-10-16 14:44 | Diagnostic Imaging Report ---
Indication: Pain around the port hub. Patient presents for port check. Patient is brought to the fluoroscopy suite and placed on the table in supine position. The patient's right chest wall port was accessed by radiology nursing. Approximately 12 mL of Omnipaque 300 contrast was injected during fluoroscopic observation. A total of 20 seconds of fluoroscopic time utilized. 2 images were obtained. Images demonstrate a right chest wall port. Tip overlies SVC. There is normal passage of contrast through the port tubing with free spill from the tip into the SVC. There is no kinking or interruption of the tubing. No fracture or evidence of abnormal extravasation is seen. The port flushed easily with saline and blood was able to be aspirated. IMPRESSION: Normal fluoroscopically assisted port check. Dictated by: Dictated on workstation # [id number]
== END ==
LOC: RAD 13:30
PROVIDERS: ATTEND Surgery
DX: Z45.2 Encounter for adjustment and management of vascular access device (principal)
CPT/HCPCS: 36598

== ENCOUNTER 2021-11-08 11:14 | Outpatient (RCR) | payer MEDICAID ==
[~2021-11-08] VITALS: Wt 104.3 kg
[~2021-11-08 11:14] MED LIST changes: -CATHETER FLUSH 10 ML SYR IV PRN; -IOHEXOL 300 MG/ML 50 ML (OMNIPAQUE 300) VIAL IV ONE
[2021-11-08] MEDS ORDERED: HEParin (CENTRAL IV FLUSH) 500 UNIT/5 ML SYR ONE (11:37)
[2021-11-08 11:48] VITALS: BP 137/93
[2021-11-08] MEDS ORDERED: HEParin 1000 UNIT/ML (10ML VIAL) FOR BOLUS IV SCH (12:00)
[2021-11-08] MEDS ORDERED: HEParin (CENTRAL IV FLUSH) 500 UNIT/5 ML SYR IV ONE ×2 (12:15→12:30)
== END 2021-11-08 11:45 | disposition home or self-care (01) ==
LOC: SDC 11:14
PROVIDERS: ATTEND Nurse Practitioner Family
DX: Z45.2 Encounter for adjustment and management of vascular access device (principal)
CPT/HCPCS: 96523

== ENCOUNTER → 2021-12-04 | Outpatient (CLI) | payer MEDICAID ==
[~2021-12-04] VITALS: Ht 160 cm; Wt 104.3 kg
[~2021-12-04] MED LIST changes: +HEParin (CENTRAL IV FLUSH) 500 UNIT/5 ML SYR IV ONE; +HEParin (CENTRAL IV FLUSH) 500 UNIT/5 ML SYR ONE
[2021-12-04 11:30] VITALS: BP 128/92
== END ==
LOC: SDC 11:01
PROVIDERS: ATTEND Nurse Practitioner Family
DX: Z45.2 Encounter for adjustment and management of vascular access device (principal)
CPT/HCPCS: 96523

== ENCOUNTER → 2022-01-02 | Outpatient (CLI) | payer MEDICAID ==
[2022-01-02 11:20] VITALS: BP 154/101
== END ==
LOC: SDC 11:15
PROVIDERS: ATTEND Nurse Practitioner Family
DX: Z45.2 Encounter for adjustment and management of vascular access device (principal)
CPT/HCPCS: 96523

== ENCOUNTER → 2022-01-17 | Outpatient (CLI) | payer MEDICAID ==
[~2022-01-17] MED LIST changes: -HEParin (CENTRAL IV FLUSH) 500 UNIT/5 ML SYR IV ONE; -HEParin (CENTRAL IV FLUSH) 500 UNIT/5 ML SYR ONE
[2022-01-17 11:35] LABS: ALBUMIN 3.6 GM/DL (3.2-4.5)
[2022-01-17 11:36] LABS: POTASSIUM 3.5 MMOL/L (3.6-5.0)
[2022-01-17 11:37] LABS: CALCIUM 8.7 MG/DL (8.5-10.1)
[2022-01-17 11:38] LABS: TOTAL PROTEIN 6.9 GM/DL (6.4-8.2)
[2022-01-17 11:40] LABS: BILIRUBIN,TOTAL 0.4 MG/DL (0.1-1.0)
[2022-01-17 11:42] LABS: CREATININE SERUM 1.06 MG/DL (0.60-1.30)
== END ==
LOC: LAB 10:46
PROVIDERS: ATTEND Internal Medicine Rheumatology
DX: M05.79 Rheumatoid arthritis with rheumatoid factor of multiple sites without organ or systems involvement (principal); Z79.899 Other long term (current) drug therapy
CPT/HCPCS: 36415; 80053

== ENCOUNTER → 2022-01-17 | Outpatient (CLI) | payer MEDICAID ==
[2022-01-17 11:21] LABS: HEMATOCRIT 36 % (35-52); HEMOGLOBIN 11.2 g/dL (11.5-16.0); MEAN CORPUSCULAR HEMOGLOBIN 25 pg (25-34); MEAN CORPUSCULAR HGB CONC 31 g/dL (32-36); MEAN CORPUSCULAR VOLUME 81 fL (80-99); MEAN PLATELET VOLUME 8.4 fL (9.0-12.2); PLATELET COUNT 305 10^3/uL (130-400); WHITE BLOOD COUNT 6.9 10^3/uL (4.3-11.0)
[2022-01-17 11:34] LABS: ALBUMIN 3.6 GM/DL (3.2-4.5); POTASSIUM 3.5 MMOL/L (3.6-5.0)
[2022-01-17 11:35] LABS: CALCIUM 8.7 MG/DL (8.5-10.1)
[2022-01-17 11:39] LABS: PHOSPHORUS 3.2 MG/DL (2.3-4.7)
[2022-01-17 11:40] LABS: CREATININE SERUM 1.03 MG/DL (0.60-1.30)
[2022-01-17 11:43] LABS: URIC ACID 7.3 MG/DL (2.6-7.2)
== END ==
LOC: LAB 10:49
PROVIDERS: ATTEND Nurse Practitioner
DX: N18.31 Chronic kidney disease, stage 3a (principal); D63.1 Anemia in chronic kidney disease
CPT/HCPCS: 80061; 80069; 82043; 82306; 82728; 83540; 83550; 83970; 84100; 84550; 85027

== ENCOUNTER → 2022-02-01 | Outpatient (CLI) | payer MEDICAID ==
[~2022-02-01] MED LIST changes: +HEParin (CENTRAL IV FLUSH) 500 UNIT/5 ML SYR ONE
[2022-02-01 12:32] VITALS: BP 171/102
== END ==
LOC: SDC 11:43
PROVIDERS: ATTEND Nurse Practitioner Family
DX: Z45.2 Encounter for adjustment and management of vascular access device (principal)
CPT/HCPCS: 96523

== ENCOUNTER → 2022-03-07 | Outpatient (CLI) | payer MEDICAID ==
[~2022-03-07] MED LIST changes: +HEParin (CENTRAL IV FLUSH) 500 UNIT/5 ML SYR IV ONE
[2022-03-07 10:25] VITALS: BP 154/100
== END ==
LOC: SDC 10:09
PROVIDERS: ATTEND Nurse Practitioner Family
DX: Z45.2 Encounter for adjustment and management of vascular access device (principal)
CPT/HCPCS: 96523

== ENCOUNTER → 2022-04-10 | Outpatient (CLI) | payer MEDICAID ==
[~2022-04-10] MED LIST changes: -HEParin (CENTRAL IV FLUSH) 500 UNIT/5 ML SYR IV ONE
[2022-04-10 10:30] VITALS: BP 149/90
== END ==
LOC: SDC 10:01
PROVIDERS: ATTEND Nurse Practitioner Family
DX: Z45.2 Encounter for adjustment and management of vascular access device (principal)
CPT/HCPCS: 96523

== ENCOUNTER → 2022-05-11 | Outpatient (CLI) | payer MEDICAID ==
[2022-05-11 09:48] VITALS: BP 137/86
== END ==
LOC: SDC 09:31
PROVIDERS: ATTEND Nurse Practitioner Family
DX: Z45.2 Encounter for adjustment and management of vascular access device (principal)
CPT/HCPCS: 96523

== ENCOUNTER → 2022-05-30 | Outpatient (CLI) | payer MEDICAID ==
[~2022-05-30] MED LIST changes: -HEParin (CENTRAL IV FLUSH) 500 UNIT/5 ML SYR ONE
[2022-05-30 14:54] LABS: BASOPHILS % (AUTO) 0 % (0-10); EOSINOPHILS # (AUTO) 0.1 10^3/uL (0.0-0.3); EOSINOPHILS % (AUTO) 1 % (0-10); HEMATOCRIT 35 % (35-52); HEMOGLOBIN 11.6 g/dL (11.5-16.0); LYMPHOCYTES # (AUTO) 1.2 10^3/uL (1.0-4.0); LYMPHOCYTES % (AUTO) 14 % (12-44); MEAN CORPUSCULAR HEMOGLOBIN 27 pg (25-34); MEAN CORPUSCULAR HGB CONC 33 g/dL (32-36); MEAN CORPUSCULAR VOLUME 82 fL (80-99); MEAN PLATELET VOLUME 8.7 fL (9.0-12.2); MONOCYTES # (AUTO) 0.5 10^3/uL (0.0-1.0); MONOCYTES % (AUTO) 6 % (0-12); NEUTROPHILS # (AUTO) 6.6 10^3/uL (1.8-7.8); NEUTROPHILS % (AUTO) 78 % (42-75); PLATELET COUNT 293 10^3/uL (130-400); WHITE BLOOD COUNT 8.5 10^3/uL (4.3-11.0)
[2022-05-30 15:02] LABS: BILIRUBIN,URINE NEGATIVE (NEGATIVE); CLARITY,URINE CLEAR; COLOR,URINE YELLOW; GLUCOSE, URINE (UA) NEGATIVE (NEGATIVE); KETONES,URINE NEGATIVE (NEGATIVE); LEUKOCYTE ESTERASE ,URINE 2+ (NEGATIVE); NITRITE,URINE NEGATIVE (NEGATIVE); PROTEIN,URINE NEGATIVE (NEGATIVE)
[2022-05-30 15:18] LABS: BACTERIA,URINE LARGE /HPF
[2022-05-30 15:26] LABS: ALBUMIN 3.5 GM/DL (3.2-4.5); BILIRUBIN,TOTAL 0.4 MG/DL (0.1-1.0); CREATININE SERUM 0.96 MG/DL (0.60-1.30); POTASSIUM 3.7 MMOL/L (3.6-5.0); TOTAL PROTEIN 7.1 GM/DL (6.4-8.2)
== END ==
LOC: LAB 14:31
PROVIDERS: ATTEND Internal Medicine Rheumatology
DX: M32.10 Systemic lupus erythematosus, organ or system involvement unspecified (principal)
CPT/HCPCS: 36415; 80053; 81000; 82570; 84156; 85025; 86160; 86225; 87077; 87088

== ENCOUNTER → 2022-07-02 | Outpatient (CLI) | payer MEDICAID ==
[2022-07-02 12:45] VITALS: BP 123/79
== END ==
LOC: SDC 12:25
PROVIDERS: ATTEND Nurse Practitioner Family
DX: Z45.2 Encounter for adjustment and management of vascular access device (principal)
CPT/HCPCS: 96523

== ENCOUNTER → 2022-07-17 | Outpatient (CLI) | payer MEDICAID ==
[2022-07-17 09:39] LABS: HEMATOCRIT 35 % (35-52); HEMOGLOBIN 11.9 g/dL (11.5-16.0); MEAN CORPUSCULAR HEMOGLOBIN 29 pg (25-34); MEAN CORPUSCULAR HGB CONC 34 g/dL (32-36); MEAN CORPUSCULAR VOLUME 85 fL (80-99); MEAN PLATELET VOLUME 8.9 fL (9.0-12.2); PLATELET COUNT 286 10^3/uL (130-400); WHITE BLOOD COUNT 8.4 10^3/uL (4.3-11.0)
[2022-07-17 09:40] LABS: BILIRUBIN,URINE NEGATIVE (NEGATIVE); CLARITY,URINE SL CLOUDY; COLOR,URINE YELLOW; GLUCOSE, URINE (UA) NEGATIVE (NEGATIVE); KETONES,URINE NEGATIVE (NEGATIVE); LEUKOCYTE ESTERASE ,URINE 2+ (NEGATIVE); NITRITE,URINE NEGATIVE (NEGATIVE); PROTEIN,URINE 1+ (NEGATIVE)
[2022-07-17 09:51] LABS: BACTERIA,URINE MODERATE /HPF; RBC,URINE RARE /HPF; WBC,URINE >100 /HPF
[2022-07-17 10:19] LABS: ALBUMIN 3.4 GM/DL (3.2-4.5); CALCIUM 8.6 MG/DL (8.5-10.1); PHOSPHORUS 2.8 MG/DL (2.3-4.7); POTASSIUM 3.5 MMOL/L (3.6-5.0); URIC ACID 6.1 MG/DL (2.6-7.2)
== END ==
LOC: LAB 09:21
PROVIDERS: ATTEND Nurse Practitioner
DX: I12.9 Hypertensive chronic kidney disease with stage 1 through stage 4 chronic kidney disease, or unspecified chronic kidney disease (principal); N18.31 Chronic kidney disease, stage 3a; D63.1 Anemia in chronic kidney disease; M35.00 Sjogren syndrome, unspecified
CPT/HCPCS: 36415; 80069; 81000; 82306; 82570; 83970; 84156; 84550; 85027; 87088

== ENCOUNTER → 2022-08-07 | Outpatient (CLI) | payer MEDICAID ==
[~2022-08-07] VITALS: Wt 104.3 kg
[2022-08-07 09:25] VITALS: BP 142/70
== END ==
LOC: SDC 09:17
PROVIDERS: ATTEND Surgery
DX: Z45.1 Encounter for adjustment and management of infusion pump (principal)
CPT/HCPCS: 96523

== ENCOUNTER → 2022-09-20 | Outpatient (CLI) | payer MEDICAID ==
[2022-09-20 09:49] VITALS: BP 127/80
== END ==
LOC: SDC 09:18
PROVIDERS: ATTEND Surgery
DX: Z45.1 Encounter for adjustment and management of infusion pump (principal)
CPT/HCPCS: 96523

== ENCOUNTER 2022-10-23 09:33 | Outpatient (CLI) | payer MEDICAID ==
[~2022-10-23] VITALS: Ht 160 cm; Wt 110.5 kg
[2022-10-23 09:59] VITALS: BP 139/93
== END 2022-10-23 10:00 | disposition home or self-care (01) ==
LOC: SDC 09:33
PROVIDERS: ATTEND Surgery
DX: Z45.1 Encounter for adjustment and management of infusion pump (principal)
CPT/HCPCS: 96523

== ENCOUNTER 2022-11-27 10:10 | Outpatient (CLI) | payer MEDICAID ==
[2022-11-27 10:30] VITALS: BP 170/98
== END 2022-11-27 10:30 | disposition home or self-care (01) ==
LOC: SDC 10:10
PROVIDERS: ATTEND Surgery
DX: Z45.1 Encounter for adjustment and management of infusion pump (principal)
CPT/HCPCS: 96523

== ENCOUNTER → 2023-01-03 | Outpatient (CLI) | payer MEDICAID ==
[2023-01-03 10:26] VITALS: BP 138/85
== END ==
LOC: SDC 10:05
PROVIDERS: ATTEND Surgery
DX: Z45.1 Encounter for adjustment and management of infusion pump (principal)
CPT/HCPCS: 96523

== ENCOUNTER → 2023-01-22 | Outpatient (CLI) | payer MEDICAID ==
[2023-01-22 15:18] LABS: BASOPHILS % (AUTO) 1 % (0-10); EOSINOPHILS # (AUTO) 0.3 10^3/uL (0.0-0.3); EOSINOPHILS % (AUTO) 4 % (0-10); HEMATOCRIT 39 % (35-52); HEMOGLOBIN 12.6 g/dL (11.5-16.0); LYMPHOCYTES % (AUTO) 26 % (12-44); MEAN CORPUSCULAR HEMOGLOBIN 27 pg (25-34); MEAN CORPUSCULAR HGB CONC 33 g/dL (32-36); MEAN CORPUSCULAR VOLUME 83 fL (80-99); MEAN PLATELET VOLUME 8.5 fL (9.0-12.2); MONOCYTES # (AUTO) 0.4 X 10^3 (0.0-1.0); MONOCYTES % (AUTO) 5 % (0-12); NEUTROPHILS % (AUTO) 65 % (42-75); PLATELET COUNT 348 10^3/uL (130-400); WHITE BLOOD COUNT 7.7 10^3/uL (4.3-11.0)
[2023-01-22 15:28] LABS: ALBUMIN 3.9 GM/DL (3.2-4.5)
[2023-01-22 15:29] LABS: POTASSIUM 3.8 MMOL/L (3.6-5.0)
[2023-01-22 15:34] LABS: PHOSPHORUS 3.2 MG/DL (2.3-4.7)
[2023-01-22 15:35] LABS: CREATININE SERUM 1.1 MG/DL (0.60-1.30)
[2023-01-22 15:37] LABS: URIC ACID 6.9 MG/DL (2.6-7.2)
== END ==
LOC: LAB 14:47
PROVIDERS: ATTEND Nurse Practitioner Family
DX: I12.9 Hypertensive chronic kidney disease with stage 1 through stage 4 chronic kidney disease, or unspecified chronic kidney disease (principal); N18.2 Chronic kidney disease, stage 2 (mild); D63.1 Anemia in chronic kidney disease
CPT/HCPCS: 36415; 80069; 82306; 82570; 83970; 84156; 84550; 85025

== ENCOUNTER → 2023-01-31 | Outpatient (CLI) | payer MEDICAID ==
[~2023-01-31] VITALS: Wt 110.5 kg
[2023-01-31 10:48] VITALS: BP 125/72
== END ==
LOC: SDC 10:25
PROVIDERS: ATTEND Surgery
DX: Z45.1 Encounter for adjustment and management of infusion pump (principal)
CPT/HCPCS: 96523

== ENCOUNTER → 2023-02-26 | Outpatient (CLI) | payer MEDICAID | LOC: CARD 10:17 | PROVIDERS: ATTEND Internal Medicine Cardiovascular Disease | DX: I34.0 Nonrheumatic mitral (valve) insufficiency (principal); I10 Essential (primary) hypertension; M54.2 Cervicalgia | CPT/HCPCS: 93306 ==

== ENCOUNTER → 2023-03-07 | Outpatient (CLI) | payer MEDICAID ==
[~2023-03-07] VITALS: Wt 110.5 kg
[2023-03-07 12:02] VITALS: BP 133/92
[2023-03-07 12:25] LABS: CHOLESTEROL 173 MG/DL (< 200); HDL CHOLESTEROL 48 MG/DL (40-60)
[2023-03-07 12:45] LABS: TRIGLYCERIDES 62 MG/DL (<150); VLDL CHOLESTEROL 12 MG/DL (5-40)
--- NOTE | 2023-03-07 16:20 | Diagnostic Imaging Report ---
INDICATION: Rheumatoid arthritis. TIME OF EXAM: 12:06 p.m. FINDINGS: Three views of the cervical spine were obtained. Curvature and alignment are normal. Vertebral body heights and disc spaces are well maintained. Odontoid is unremarkable. Prevertebral tissues are normal. No fractures are seen. A right chest wall port is noted. IMPRESSION: Unremarkable cervical spine radiographs. Dictated by: Dictated on workstation # [id number]
== END ==
LOC: SDC 11:21
PROVIDERS: ATTEND Internal Medicine Rheumatology
DX: M06.88 Other specified rheumatoid arthritis, vertebrae (principal); Z79.899 Other long term (current) drug therapy
CPT/HCPCS: 36415; 36591; 72040; 80061

== ENCOUNTER → 2023-04-04 | Outpatient (CLI) | payer MEDICAID ==
[~2023-04-04] VITALS: Ht 160 cm; Wt 122.5 kg
[2023-04-04 11:43] VITALS: BP 139/87
== END ==
LOC: SDC 11:03
PROVIDERS: ATTEND Family Medicine
DX: Z45.1 Encounter for adjustment and management of infusion pump (principal)
CPT/HCPCS: 96523

== ENCOUNTER 2023-05-02 10:43 | Outpatient (CLI) | payer MEDICAID ==
[2023-05-02 11:10] VITALS: BP 154/100
== END 2023-05-02 11:10 | disposition home or self-care (01) ==
LOC: SDC 10:43
PROVIDERS: ATTEND Surgery
DX: Z45.1 Encounter for adjustment and management of infusion pump (principal)
CPT/HCPCS: 96523

== ENCOUNTER → 2023-05-30 | Outpatient (CLI) | payer MEDICAID ==
[~2023-05-30] VITALS: Wt 122.5 kg
[~2023-05-30] MED LIST changes: -HYDR200T46 PO; +HYDR200T71 PO
[2023-05-30 11:43] VITALS: BP 120/80
== END ==
LOC: SDC 11:17
PROVIDERS: ATTEND Surgery
DX: Z45.2 Encounter for adjustment and management of vascular access device (principal)
CPT/HCPCS: 96523

== ENCOUNTER → 2023-07-23 | Outpatient (CLI) | payer MEDICAID ==
[2023-07-23 09:52] VITALS: BP 126/81
== END ==
LOC: SDC 09:30
PROVIDERS: ATTEND Surgery
DX: Z45.1 Encounter for adjustment and management of infusion pump (principal)
CPT/HCPCS: 96523

== ENCOUNTER → 2023-08-29 | Outpatient (CLI) | payer MEDICAID ==
[~2023-08-29] VITALS: Ht 160 cm; Wt 112.5 kg
[2023-08-29 09:40] VITALS: BP 138/83
== END ==
LOC: SDC 09:19
PROVIDERS: ATTEND Surgery
DX: Z45.1 Encounter for adjustment and management of infusion pump (principal)
CPT/HCPCS: 96523

== ENCOUNTER → 2023-09-30 | Outpatient (CLI) | payer MEDICAID ==
[2023-09-30 10:05] VITALS: BP 137/87
== END ==
LOC: SDC 10:02
PROVIDERS: ATTEND Surgery
DX: Z45.1 Encounter for adjustment and management of infusion pump (principal)
CPT/HCPCS: 96523